=== PATIENT | female | born 1965 | race Caucasian/White ===

== ENCOUNTER 2016-08-22 10:11 | Observation (INO) | payer BC, OTHER ==
[~2016-08-22] VITALS: Ht 151.1 cm; Wt 123.0 kg
--- NOTE | 2016-08-22 10:45 | PHYS DOC ---
Past Medical History Past Medical History: Depression, Diabetes-Type II Past Surgical History: Cholecystectomy, Tubal ligation, Other Additional Past Surgical Histo: lap band Additional Information: Nonsmoker Alcohol Use: None Drug Use: None Adult General Chief Complaint Chief Complaint: CHEST PAIN HPI HPI Patient is a 50 year old female who presents with chest pain starting yesterday. She has sharp pain under the left breast and pressure over the left upper chest. She states that the pain is worse with deep breaths or with movement. She denies any shortness of breath. She did not have diaphoresis, nausea, vomiting, or palpitations with the pain. She denies cough, swelling or pain in the lower extremities. She's had normal bowel movements and denies abdominal pain. She took Gas-X last night without relief of her pain. She has a history of diabetes and hypertension. She denies history of elevated cholesterol or CAD. She denies a family history of CAD or clotting disorders. Her PCP is CHAN Cordova. She does not have a core feeder. Review of Systems Review of Systems Constitutional: Denies fever or chills. [] Eyes: Denies change in visual acuity, redness, or eye pain. [] HENT: Denies ear pain, nasal congestion or sore throat. [] Respiratory: Denies cough or shortness of breath. [] Cardiovascular: Denies palpitations or edema. The ports chest pain. GI: Denies nausea, vomiting, bloody stools or diarrhea. Reports left upper abdominal pain. : Denies dysuria, hematuria or urinary frequency. [] Musculoskeletal: Denies back pain or joint pain. [] Integument: Denies rash or skin lesions. [] Neurologic: Denies headache, focal weakness or sensory changes. [] Endocrine: Denies polyuria or polydipsia. [] Psych: Denies anxiety or depression. [] All systems reviewed and negative unless otherwise stated in the HPI. Current Medications Current Medications Current Medications Medications (Trade) Dose Ordered Sig/Florentin Start Time Stop Time Status Last Admin Dose Admin Morphine Sulfate 4 mg PRN Q15MIN PRN 08/22/16 11:00 08/23/16 10:59 08/22/16 12:06 4 MG Prochlorperazine Edisylate (Compazine) 10 mg 1X ONCE 08/22/16 11:00 08/22/16 11:01 DC 08/22/16 12:02 10 MG Allergies Allergies Allergies Coded Allergies Type Severity Reaction Last Updated Verified Sulfa (Sulfonamide Antibiotics) Allergy Intermediate Hives 08/04/14 Yes Physical Exam Physical Exam Constitutional: Well developed, well nourished, no acute distress, non-toxic appearance. [] HENT: Normocephalic, atraumatic, oropharynx moist. [] Eyes: PERRLA, EOMI, conjunctiva normal, no discharge. [] Neck: Normal range of motion, no tenderness, supple, no stridor. [] Cardiovascular: Heart rate regular rhythm, no murmur. [] Lungs & Thorax: Bilateral breath sounds clear to auscultation without wheezes, rales, or rhonchi. There is mild tenderness to palpation over the left upper anterior chest wall. Abdomen: Bowel sounds normal, soft, left upper quadrant tenderness, no masses, no pulsatile masses. [] Skin: Warm, dry, no erythema, no rash. [] Back: No midline tenderness, no CVA tenderness. [] Extremities: No tenderness, ROM intact, no edema. Distal pulses equal bilaterally. [] Neurologic: Alert and oriented X 3, normal motor function, normal sensory function, no focal deficits noted. [] Psychologic: Affect normal, judgement normal, mood normal. [] Current Patient Data Vital Signs Vital Signs Date Time Temp Pulse Resp B/P Pulse Ox O2 Delivery O2 Flow Rate FiO2 08/22/16 12:00 68 18 137/77 98 Room Air 08/22/16 10:24 97.2 97.2 Lab Values Laboratory Tests Test 08/22/16 11:22 White Blood Count 6.4x10^3/uL (4.0-11.0) Red Blood Count 5.11x10^6/uL (3.50-5.40) Hemoglobin 14.7g/dL (12.0-15.5) Hematocrit 44.7% (36.0-47.0) Mean Corpuscular Volume 87fL (79-100) Mean Corpuscular Hemoglobin 29pg (25-35) Mean Corpuscular Hemoglobin Concent 33g/dL (31-37) Red Cell Distribution Width 14.4% (11.5-14.5) Platelet Count 210x10^3/uL (140-400) Neutrophils (%) (Auto) 56% (31-73) Lymphocytes (%) (Auto) 32% (24-48) Monocytes (%) (Auto) 7% (0-9) Eosinophils (%) (Auto) 5% (0-3) H Basophils (%) (Auto) 1% (0-3) Neutrophils # (Auto) 3.5x10^3uL (1.8-7.7) Lymphocytes # (Auto) 2.0x10^3/uL (1.0-4.8) Monocytes # (Auto) 0.5x10^3/uL (0.0-1.1) Eosinophils # (Auto) 0.3x10^3/uL (0.0-0.7) Basophils # (Auto) 0.0x10^3/uL (0.0-0.2) Prothrombin Time 12.2SEC (11.7-14.0) Prothrombin Time INR 1.0 (0.8-1.1) Sodium Level 143mmol/L (136-145) Potassium Level 3.9mmol/L (3.5-5.1) Chloride Level 105mmol/L (98-107) Carbon Dioxide Level 31mmol/L (21-32) Anion Gap 7 (6-14) Blood Urea Nitrogen 18mg/dL (7-20) Creatinine 0.7mg/dL (0.6-1.0) Estimated GFR (Cockcroft-Gault) 89.3 Glucose Level 99mg/dL (70-99) Calcium Level 9.0mg/dL (8.5-10.1) Magnesium Level 2.2mg/dL (1.8-2.4) Total Bilirubin 0.5mg/dL (0.2-1.0) Direct Bilirubin 0.2mg/dL (0.0-0.2) Aspartate Amino Transferase (AST) 43U/L (15-37) H Alanine Aminotransferase (ALT) 88U/L (14-59) H Alkaline Phosphatase 88U/L (46-116) Creatine Kinase 172U/L (26-192) Creatine Kinase MB (Mass) 1.0ng/mL (0.0-3.6) Creatine Kinase MB Relative Index 0.6% (0-4) Troponin I Quantitative < 0.017ng/mL (0.000-0.055) PZ-Zez-[id number]-Type Natriuretic Peptide 97pg/mL (0-124) Total Protein 7.7g/dL (6.4-8.2) Albumin 4.2g/dL (3.4-5.0) Lipase 168U/L (73-393) Laboratory Tests 08/22/16 11:22 Laboratory Tests 08/22/16 11:22 EKG EKG EKG at 1021. Heart rate 80 bpm. Sinus rhythm without any acute ischemic changes or STEMI, as interpreted by Dr. Guevara. Radiology/Procedures Radiology/Procedures REASON: chest pain PROCEDURE: CHEST PA & LATERAL Chest, 2 views, 08/22/2016: History: Left-sided pain, hypertension The left ventricle is mildly prominent. The pulmonary vascularity is normal. No pulmonary infiltrates are seen. There is no evidence of pleural fluid. Moderate spurring is present in the spine. IMPRESSION: No acute cardiopulmonary abnormality is detected. Course & Med Decision Making Course & Med Decision Making Pertinent Labs and Imaging studies reviewed. (See chart for details) Patient is a 42-year-old female with history of diabetes and hypertension who presents with chest pain starting yesterday. Upon arrival to the emergency department, her vital signs are stable. On exam, she has left upper quadrant abdominal tenderness and mild anterior chest wall tenderness. EKG does not show any acute changes. Initial troponin is negative. Chest x-ray is unremarkable. There are no other significant laboratory abnormalities. I offered admission for her chest pain. The patient is in agreement with this plan. She is admitted under the hospitalist service by Dr. Liao for observation. The patient remained stable while in the emergency department. Dragon Disclaimer Dragon Disclaimer This electronic medical record was generated, in whole or in part, using a voice recognition dictation system. Departure Departure Impression: Primary Impression: Chest pain Disposition: ADMITTED INPATIENT (Dr. Liao) Admitting Physician: Other (Dr. Liao) Condition: STABLE Referrals: HERACLIO ISAAC (PCP) Problem Qualifiers Primary Impression: Chest pain Chest pain type: unspecified Qualified Code: R07.9 - Chest pain, unspecified HEATH PRAKASH Aug 22, 2016 10:44
[2016-08-22] MEDS ORDERED: MORPHINE SULFATE 4 MG/ML DISP.SYRIN. IV/SQ PRN (11:00)
[2016-08-22] MEDS ORDERED: PROCHLORPERAZINE 10 MG/2 ML VIAL. IV ONE (11:00)
--- NOTE | 2016-08-22 11:31 | EKG ---
[facility] [address] [place] [address] Test Date: 2016-08-22 Test Time: 10:21:18 Pat Name: GINA BACK Department: Room: Gender: F Drum Tester: : [id number] Requested By: HEATH PRAKASH Order Number: [id number] Reading MD: Measurements Intervals [place] Rate: 80 P: 32 OH: 156 QRS: 20 QRSD: 90 T: 18 QT: 368 QTc: 428 Interpretive Statements SINUS RHYTHM QRS(T) CONTOUR ABNORMALITY CONSIDER ANTEROSEPTAL MYOCARDIAL DAMAGE RI6.01 No previous ECG available for comparison
--- NOTE | 2016-08-22 11:31 | RAD ---
Chest, 2 views, 08/22/2016: History: Left-sided pain, hypertension The left ventricle is mildly prominent. The pulmonary vascularity is normal. No pulmonary infiltrates are seen. There is no evidence of pleural fluid. Moderate spurring is present in the spine. IMPRESSION: No acute cardiopulmonary abnormality is detected.
[2016-08-22 11:35] LABS: BASO % 1 % (0-3); EOS % 5 % (0-3); HEMATOCRIT 44.7 % (36.0-47.0); HEMOGLOBIN 14.7 g/dL (12.0-15.5); LYMPH % 32 % (24-48); MEAN CORPUSCULAR HEMOGLOBIN 29 pg (25-35); MEAN CORPUSCULAR HGB CONC 33 g/dL (31-37); MEAN CORPUSCULAR VOLUME 87 fL (79-100); MONO % 7 % (0-9); NEUT % 56 % (31-73); PLATELET COUNT 210 x10^3/uL (140-400); RED BLOOD COUNT 5.11 x10^6/uL (3.50-5.40); RED CELL DISTRIBUTION WIDTH 14.4 % (11.5-14.5); WHITE BLOOD COUNT 6.4 x10^3/uL (4.0-11.0)
[2016-08-22 11:41] LABS: CREATININE 0.7 mg/dL (0.6-1.0); GFR 89.3; POTASSIUM 3.9 mmol/L (3.5-5.1)
[2016-08-22 11:47] LABS: ALBUMIN 4.2 g/dL (3.4-5.0); DIRECT BILIRUBIN 0.2 mg/dL (0.0-0.2); MAGNESIUM 2.2 mg/dL (1.8-2.4); PROTHROMBIN TIME PATIENT 12.2 SEC (11.7-14.0); TOTAL BILIRUBIN 0.5 mg/dL (0.2-1.0); TOTAL PROTEIN 7.7 g/dL (6.4-8.2)
[2016-08-22 11:56] LABS: CKMB INDEX 0.6 % (0-4)
[2016-08-22] MEDS ORDERED: MORPHINE SULFATE 4 MG/ML DISP.SYRIN. IV PRN (14:15)
[2016-08-22] MEDS ORDERED: ASPIRIN 325 MG TABLET PO ONE (14:15)
--- NOTE | 2016-08-22 14:46 | PDOC2 ---
RONALD CARRERA [employer] 08/22/16 1446: CARDIAC CONSULT DATE OF CONSULT Date of Consult DATE: 08/22/16 TIME: 14:40 REASON FOR CONSULT Reason for Consult: Chest pain REFERRING PHYSICIAN Referring Physician: Irvin SOURCE Source: Chart review, Patient HISTORY OF PRESENT ILLNESS HISTORY OF PRESENT ILLNESS This is a pleasant 50 yo female admitted for complains of left abdominal pain and chest pain. Reports that starting yesterday afternoon she started having left abdominal pain. She had lap band 5 yrs ago in which she has lost 100 lbs to date. Along the way she has had 3 complications in relation to her lap band , one of which she had significant erosion of her esophagus. She has not had an EGD for a while. She actually had CT of the abdomen 09/2015 that displayed possible slippage of lap band. Her abdominal pain is mainly LUQ sharp and nagging and worse with palpation. This then was followed by left chest sharp pain which is also reproducible with palpation. She believes this is related to her abdominal pain. She is deconditioned but no associated SOA, nausea, vomiting, diaphoresis. Denies any daily NSAID use. She is DM with controlled BG <130s. Denies HTN, HLP. The only other medications she takes is lexapro. She is significant for GERD but does not utilize any PPI or H2 gab. Denies any CAD, VTE, falls or any recent injury. PAST MEDICAL HISTORY Cardiovascular: No pertinent hx Pulmonary: No pertinent hx CENTRAL NERVOUS SYSTEM: Other (No pertinent history) GI: GERD Heme/Onc: No pertinent hx Hepatobiliary: No pertinent hx, Other (NEAL) Psych: Depression Musculoskeletal: Osteoarthritis, Other (morbid obesity) Rheumatologic: No pertinent hx Infectious disease: No pertinent hx Endocrine: Diabetes (2) PAST SURGICAL HISTORY Past Surgical History: Cholecystectomy, Tubal Ligation, Other (lap band) FAMILY HISTORY Family History noncontributory to CV SOCIAL HISTORY Smoke: No ALCOHOL: none Drugs: None Lives: with Family CURRENT MEDICATIONS CURRENT MEDICATIONS Current Medications Medications (Trade) Dose Ordered Sig/Florentin Route PRN Reason Start Time Stop Time Status Last Admin Dose Admin Morphine Sulfate 4 mg PRN Q15MIN PRN IV/SQ PAIN GREATER THAN 3/10 08/22/16 11:00 08/23/16 10:59 08/22/16 12:06 Prochlorperazine Edisylate (Compazine) 10 mg 1X ONCE IV 08/22/16 11:00 08/22/16 11:01 DC 08/22/16 12:02 ALLERGIES ALLERGIES: Coded Allergies: Sulfa (Sulfonamide Antibiotics) (Verified Allergy, Intermediate, Hives, ) ROS Review of System 14 point ROS evaluated with pertinent positives noted per HPI PHYSICAL EXAM General: Alert, Oriented X3, Cooperative, No acute distress HEENT: Atraumatic, Mucous membr. moist/pink Lungs: Clear to auscultation Heart: Regular rate, Normal S1, Normal S2, No murmurs Abdomen: Soft, No tenderness, Other (obese) Extremities: No cyanosis, No edema Skin: No breakdown, No significant lesion Neuro: Normal speech, Sensation intact Psych/Mental Status: Mental status NL, Mood NL MUSCULOSKELETAL: Osteoarthritic changes both hands VITALS VITALS Vital Signs Date Time Temp Pulse Resp B/P Pulse Ox O2 Delivery O2 Flow Rate FiO2 08/22/16 14:00 72 18 144/73 97 Room Air 08/22/16 10:24 97.2 97.2 LABS Lab: Laboratory Tests Test 08/22/16 11:22 White Blood Count 6.4x10^3/uL (4.0-11.0) Red Blood Count 5.11x10^6/uL (3.50-5.40) Hemoglobin 14.7g/dL (12.0-15.5) Hematocrit 44.7% (36.0-47.0) Mean Corpuscular Volume 87fL (79-100) Mean Corpuscular Hemoglobin 29pg (25-35) Mean Corpuscular Hemoglobin Concent 33g/dL (31-37) Red Cell Distribution Width 14.4% (11.5-14.5) Platelet Count 210x10^3/uL (140-400) Neutrophils (%) (Auto) 56% (31-73) Lymphocytes (%) (Auto) 32% (24-48) Monocytes (%) (Auto) 7% (0-9) Eosinophils (%) (Auto) 5% (0-3) Basophils (%) (Auto) 1% (0-3) Neutrophils # (Auto) 3.5x10^3uL (1.8-7.7) Lymphocytes # (Auto) 2.0x10^3/uL (1.0-4.8) Monocytes # (Auto) 0.5x10^3/uL (0.0-1.1) Eosinophils # (Auto) 0.3x10^3/uL (0.0-0.7) Basophils # (Auto) 0.0x10^3/uL (0.0-0.2) Prothrombin Time 12.2SEC (11.7-14.0) Prothromb Time International Ratio 1.0 (0.8-1.1) Sodium Level 143mmol/L (136-145) Potassium Level 3.9mmol/L (3.5-5.1) Chloride Level 105mmol/L (98-107) Carbon Dioxide Level 31mmol/L (21-32) Anion Gap 7 (6-14) Blood Urea Nitrogen 18mg/dL (7-20) Creatinine 0.7mg/dL (0.6-1.0) Estimated GFR (Cockcroft-Gault) 89.3 Glucose Level 99mg/dL (70-99) Calcium Level 9.0mg/dL (8.5-10.1) Magnesium Level 2.2mg/dL (1.8-2.4) Total Bilirubin 0.5mg/dL (0.2-1.0) Direct Bilirubin 0.2mg/dL (0.0-0.2) Aspartate Amino Transf (AST/SGOT) 43U/L (15-37) Alanine Aminotransferase (ALT/SGPT) 88U/L (14-59) Alkaline Phosphatase 88U/L (46-116) Creatine Kinase 172U/L (26-192) Creatine Kinase MB (Mass) 1.0ng/mL (0.0-3.6) Creatine Kinase MB Relative Index 0.6% (0-4) Troponin I Quantitative < 0.017ng/mL (0.000-0.055) DK-Rmd-Y-Type Natriuretic Peptide 97pg/mL (0-124) Total Protein 7.7g/dL (6.4-8.2) Albumin 4.2g/dL (3.4-5.0) Lipase 168U/L (73-393) ASSESSMENT/PLAN ASSESSMENT/PLAN 1. Atypical CP: reproducible with palpation. initial troponin nml, EKG SR without acute changes. Doubt ACS likely GI in relation to lap band 2. Abdominal pain: mainly to mid and LUQ. Multiple lap band complications in the past. 3. DM2: controlled per pt 4. Morbid obesity Recommendations 1. Will obtain baseline TTE. Will trend troponin. If no significant changes then no further cardiac w/u needed. 2. Lipids, TSH 3. GI cocktail, start on PPI 4. Recommend CT abd, will defer to PCP Problems: MARYCRUZ ROSE MD 08/23/16 1303: CARDIAC CONSULT ALLERGIES ALLERGIES: Coded Allergies: Sulfa (Sulfonamide Antibiotics) (Verified Allergy, Intermediate, Hives, ) ASSESSMENT/PLAN ASSESSMENT/PLAN Patient seen and examined 08/22/16. Agree with RECONNAISSANCE CREWMEMBER's assessment and plan. Chest pain atypical and most probably GI etiology. Myocardial infarction ruled out. 2-D echo showed normal LV function without any wall motion abnormalities. No further cardiac workup is indicated. Thank you for your consultation. Problems: RONALD CARRERA APRN Aug 22, 2016 14:46 MARYCRUZ ROSE MD Aug 23, 2016 13:03
[2016-08-22] MEDS ORDERED: LORA10TA68 PO (16:26)
[2016-08-22] MEDS ORDERED: ESCI10TA PO (16:26)
[2016-08-22] MEDS ORDERED: METF500T4 PO (16:26)
--- NOTE | 2016-08-22 16:28 | CARD ---
APPROVED REPORT EXAM: Two-dimensional and M-mode echocardiogram with Doppler and color Doppler. Other Information Quality : Average Rhythm : NSR INDICATION Chest Pain 2D DIMENSIONS RVDd2.5 (2.9-3.5cm)Left Atrium(2D)3.3 (1.6-4.0cm) IVSd1.1 (0.7-1.1cm)Aortic Root(2D)3.0 (2.0-3.7cm) LVDd4.7 (3.9-5.9cm)LVOT Diameter2.0 (1.8-2.4cm) PWd1.1 (0.7-1.1cm)LVDs3.0 (2.5-4.0cm) FS (%) 35.4 %SV65.1 ml Aortic Valve AoV Peak Jack.122.3cm/sAoV VTI27.4cm AO Peak GR.6.0mmHgLVOT VTI 24.03cm AO Mean GR.4mmHg Mitral Valve MV E Ctohjudc44.5cm/sMV DECEL [id number] MV A Rjxgrlii95.2cm/sE/A Ratio1.1 MV A [id number] TDI Lateral E' P. V12.83cm/sMedial E' P. V10.86cm/s E/Lateral E'5.1E/Medial E'6.0 Tricuspid Valve TR P. [id number]/sRAP [id number] TR Peak Gr.[id number] LEFT VENTRICLE The left ventricle is normal size. There is normal left ventricular wall thickness. Left ventricle sy stolic function is normal. The Ejection Fraction is 55-60%. There is normal LV segmental wall motion. The left ventricular diastolic function and filling is normal for age. RIGHT VENTRICLE The right ventricle is normal size. The right ventricular systolic function is normal. ATRIA The left atrium size is normal. The right atrium size is normal. The interatrial septum is intact wit h no evidence for an atrial septal defect or patent foramen ovale as noted on 2-D or Doppler imaging. AORTIC VALVE The aortic valve is normal in structure and function. The aortic valve is trileaflet. Doppler and Col or Flow revealed no significant aortic regurgitation. There is no significant aortic valvular stenosi s. MITRAL VALVE The mitral valve is normal in structure and function. There is no mitral valve stenosis. Doppler and Color Flow revealed trace mitral regurgitation. TRICUSPID VALVE The tricuspid valve is normal in structure and function. Doppler and Color Flow revealed trace to mil d tricuspid regurgitation. The PA pressure was estimated at 29 mmHg. There is no tricuspid valve sten osis. PULMONIC VALVE The pulmonic valve is not well visualized. Doppler and Color Flow revealed no pulmonic valvular regur gitation. There is no pulmonic valvular stenosis. GREAT VESSELS The aortic root is normal in size. Pulmonary veins not recorded. The IVC was not well visualized. PERICARDIAL EFFUSION There is no evidence of significant pericardial effusion. Critical Notification Critical Value: No <Conclusion> The left ventricle is normal size. Left ventricle systolic function is normal. The Ejection Fraction is 55-60%. There is no significant aortic valvular stenosis. Doppler and Color Flow revealed no significant aortic regurgitation. Doppler and Color Flow revealed trace mitral regurgitation. Doppler and Color Flow revealed trace to mild tricuspid regurgitation. The PA pressure was estimated at 29 mmHg. There is no evidence of significant pericardial effusion.
[2016-08-22] MEDS ORDERED: LIDO:MAALOX:DONNATAL 1:1:1 15 ML SINGLE DOSE SWSW ONE (16:45)
[2016-08-22] MEDS: PANTOPRAZOLE 40 MG TABLET.DR. PO SCH (17:51)
--- NOTE | 2016-08-22 18:52 | ACF ---
Admission Forms Criteria CHEST PAIN Clinical Indications for Admission to Inpatient Care (Place 'X' for any and all applicable criteria): Admission is indicated for chest pain and ANY ONE of the following(1)(2)(3)(4)(5 ): [ ]I. Angina with acute coronary syndrome (Also use Myocardial Infarction or Angina guideline) [ ]II. Hemodynamic instability [X]III. Angina needing acute intervention as indicated by ALL of the following( 11)(12): [X]a) Unstable angina is present as indicated by angina that is ANY ONE of the following: [X]i) New onset [ ]ii) Nocturnal [ ]iii) Prolonged at rest [ ]iv) Progressive [ ]b) Angina warrants acute intervention as indicated by ANY ONE of the following: [ ]i) Recurrent angina (e.g, not responding as previously to treatment) [ ]ii) Angina at rest or with low-level activities despite initial medical therapy [ ]iii) New or presumably new ST-segment depression on ECG [ ]iv) Signs or symptoms of heart failure (eg, dyspnea, pulmonary edema) [ ]v) New or worsening mitral regurgitation [ ]vi) Hemodynamic instability [ ]vii) Dangerous arrhythmia (eg, sustained ventricular tachycardia) [ ]viii) History of percutaneous coronary intervention within 6 months [ ]ix) History of coronary artery bypass graft surgery [ ]x) HEIDI risk score of 2 or greater[A] [X]xi) History of Diabetes(14) [ ]xii) High-risk cardiac ischemia findings on noninvasive testing (e.g, echocardiogram, treadmill testing, nuclear scan) [ ]xiii) Chronic renal insufficiency (ie, estimated GFR less than 60 mL/min/1.732m) [ ]xiv) Left ventricular ejection fraction less than 40% [ ]IV. Evidence of CO (eg, cardiac biomarkers positive, ST-segment elevation on ECG) also use Myocardial Infarction Criteria Form. [ ]V. Pulmonary edema [ ]. Respiratory distress [ ]VII. Chest pain indicative of serious diagnosis other than coronary artery disease (eg, aortic dissection) [ ]VIII. Contraindications and/or Inappropriate clinical situations for Observational Care in patients with Chest Pain, when ANY ONE of the following is required: [ ]a) Patient with risk factor for pulmonary embolism, acute coronary syndrome and myocardial infarction (18) [ ]b) Patient with Pulmonary embolism require an average LOS of 4.3 days, therefore emergency department observation management is inappropriate 18,23 [ ]c) Painful condition/s in the elderly, have the highest rate of recidivism after emergency department observation management (10.8%) 20,21,22 [ ]d) Elevated cardiac biomarker requires intensive and exhaustive care (19) [ ]IX. General contraindications and/or Inappropriate clinical situations for Observational Care in patients with Chest Pain, when ANY ONE of the following is required: [ ]a) Prediction of prolongation of LOS based on ANY ONE of the following may be considered as a contraindication for observational care 2, 3, 4, 5, 6, 7, 8, 9, 10, 11 [ ]i) Age > 65 yrs. [ ]ii) Patient arriving by ambulance [ ]iii) Patient with high acuity [ ]iv) Patient requiring vital sign monitoring [ ]v) Patient on IV medication [ ]b) Systolic blood pressures 180mmHg 3,12 [ ]c) Patient with altered mental status including delirium and other alteration of consciousness, (3) [ ]d) Patient whose discharge disposition will be to a group home home or rehabilitation home should not be managed in Emergency Department Observation Unit. CMS rule requires 3 days hospital stay before such placement. 3,13 [ ]e) Patient with failure to thrive due to broad array of etiologies 3,16,17 [ ]f) Inability to ambulate 3,14 Extended stay beyond goal length of stay may be needed for (1)(28): [ ]a) Specific condition diagnosed after evaluation (eg, pulmonary embolism, aortic dissection) [ ]b) Unstable angina [ ]c) Continued suspicion of acute coronary syndrome with inability to complete needed cardiac evaluation (eg, patient clinically unable to undergo stress testing) [ ]d) Myocardial infarction (Contents from ANGINA and CHEST PAIN clinical indications for admission to inpatient care have been integrated in this form) The original [facility] content created by [employer] has been revised. The portions of the content which have been revised are identified through the use of italic text or in bold, and [facility] has neither reviewed nor approved the modified material. All other unmodified content is copyright [employer]. Please see references footnoted in the original [facility] edition 2016 Admission Criteria Met?: Yes SONJA GUTIERREZ Aug 22, 2016 18:52
[2016-08-22 19:00] VITALS: BP 114/69
[2016-08-22 22:57] VITALS: BP 113/75
[2016-08-23 03:00] VITALS: BP 107/57
[2016-08-23 04:44] LABS: CHOLESTEROL/HDL RATIO 4.9
[2016-08-23 07:00] VITALS: BP 152/78
[2016-08-23] MEDS: PANTOPRAZOLE 40 MG TABLET.DR. PO SCH (08:27)
[2016-08-23 11:00] VITALS: BP 142/95
--- NOTE | 2016-08-23 11:08 | PDOC ---
PROGRESS NOTES Chief Complaint Chief Complaint CC: abdominal pain A/P Abdominal pain / Chest pain, MSK Related vs GERD Plan CT abdomen ECHO no findings labs no acute findings anticipated DC today after CT abdomen. Vitals Vitals Vital Signs Date Time Temp Pulse Resp B/P Pulse Ox O2 Delivery O2 Flow Rate FiO2 08/23/16 08:00 Room Air 08/23/16 07:00 97.9 83 20 152/78 93 97.9 Physical Exam General: Alert, Oriented X3, Cooperative, No acute distress Heart: Regular rate, Normal S1, Normal S2, No murmurs Lungs: Clear Abdomen: Normal bowel sounds, Soft, No tenderness, Other (obese) Extremities: No cyanosis, No edema Skin: No breakdown, No significant lesion Labs LABS Laboratory Tests Test 08/22/16 11:22 08/22/16 20:20 08/22/16 20:46 08/23/16 02:50 White Blood Count 6.4x10^3/uL (4.0-11.0) Red Blood Count 5.11x10^6/uL (3.50-5.40) Hemoglobin 14.7g/dL (12.0-15.5) Hematocrit 44.7% (36.0-47.0) Mean Corpuscular Volume 87fL (79-100) Mean Corpuscular Hemoglobin 29pg (25-35) Mean Corpuscular Hemoglobin Concent 33g/dL (31-37) Red Cell Distribution Width 14.4% (11.5-14.5) Platelet Count 210x10^3/uL (140-400) Neutrophils (%) (Auto) 56% (31-73) Lymphocytes (%) (Auto) 32% (24-48) Monocytes (%) (Auto) 7% (0-9) Eosinophils (%) (Auto) 5% (0-3) Basophils (%) (Auto) 1% (0-3) Neutrophils # (Auto) 3.5x10^3uL (1.8-7.7) Lymphocytes # (Auto) 2.0x10^3/uL (1.0-4.8) Monocytes # (Auto) 0.5x10^3/uL (0.0-1.1) Eosinophils # (Auto) 0.3x10^3/uL (0.0-0.7) Basophils # (Auto) 0.0x10^3/uL (0.0-0.2) Prothrombin Time 12.2SEC (11.7-14.0) Prothromb Time International Ratio 1.0 (0.8-1.1) Sodium Level 143mmol/L (136-145) Potassium Level 3.9mmol/L (3.5-5.1) Chloride Level 105mmol/L (98-107) Carbon Dioxide Level 31mmol/L (21-32) Anion Gap 7 (6-14) Blood Urea Nitrogen 18mg/dL (7-20) Creatinine 0.7mg/dL (0.6-1.0) Estimated GFR (Cockcroft-Gault) 89.3 Glucose Level 99mg/dL (70-99) Calcium Level 9.0mg/dL (8.5-10.1) Magnesium Level 2.2mg/dL (1.8-2.4) Total Bilirubin 0.5mg/dL (0.2-1.0) Direct Bilirubin 0.2mg/dL (0.0-0.2) Aspartate Amino Transf (AST/SGOT) 43U/L (15-37) Alanine Aminotransferase (ALT/SGPT) 88U/L (14-59) Alkaline Phosphatase 88U/L (46-116) Creatine Kinase 172U/L (26-192) Creatine Kinase MB (Mass) 1.0ng/mL (0.0-3.6) Creatine Kinase MB Relative Index 0.6% (0-4) Troponin I Quantitative < 0.017ng/mL (0.000-0.055) < 0.017ng/mL (0.000-0.055) < 0.017ng/mL (0.000-0.055) MT-Pud-N-Type Natriuretic Peptide 97pg/mL (0-124) Total Protein 7.7g/dL (6.4-8.2) Albumin 4.2g/dL (3.4-5.0) Lipase 168U/L (73-393) Thyroid Stimulating Hormone (TSH) 1.125uIU/mL (0.358-3.74) Glucose (Fingerstick) 108mg/dL (70-99) Triglycerides Level 132mg/dL (0-150) Cholesterol Level 172mg/dL (0-200) LDL Cholesterol, Calculated 111mg/dL (0-100) VLDL Cholesterol, Calculated 26mg/dL (0-40) HDL Cholesterol 35mg/dL (40-60) Cholesterol/HDL Ratio 4.9 Test 08/23/16 08:09 Glucose (Fingerstick) 104mg/dL (70-99) Assessment and Plan Assessmemt and Plan Problems Medical Problems: (1) Chest pain Status: Acute Problems: Comment Review of Relevant I have reviewed the following items steve (where applicable) has been applied. Labs Laboratory Tests Test 08/22/16 11:22 08/22/16 20:20 08/22/16 20:46 08/23/16 02:50 White Blood Count 6.4x10^3/uL (4.0-11.0) Red Blood Count 5.11x10^6/uL (3.50-5.40) Hemoglobin 14.7g/dL (12.0-15.5) Hematocrit 44.7% (36.0-47.0) Mean Corpuscular Volume 87fL (79-100) Mean Corpuscular Hemoglobin 29pg (25-35) Mean Corpuscular Hemoglobin Concent 33g/dL (31-37) Red Cell Distribution Width 14.4% (11.5-14.5) Platelet Count 210x10^3/uL (140-400) Neutrophils (%) (Auto) 56% (31-73) Lymphocytes (%) (Auto) 32% (24-48) Monocytes (%) (Auto) 7% (0-9) Eosinophils (%) (Auto) 5% (0-3) Basophils (%) (Auto) 1% (0-3) Neutrophils # (Auto) 3.5x10^3uL (1.8-7.7) Lymphocytes # (Auto) 2.0x10^3/uL (1.0-4.8) Monocytes # (Auto) 0.5x10^3/uL (0.0-1.1) Eosinophils # (Auto) 0.3x10^3/uL (0.0-0.7) Basophils # (Auto) 0.0x10^3/uL (0.0-0.2) Prothrombin Time 12.2SEC (11.7-14.0) Prothromb Time International Ratio 1.0 (0.8-1.1) Sodium Level 143mmol/L (136-145) Potassium Level 3.9mmol/L (3.5-5.1) Chloride Level 105mmol/L (98-107) Carbon Dioxide Level 31mmol/L (21-32) Anion Gap 7 (6-14) Blood Urea Nitrogen 18mg/dL (7-20) Creatinine 0.7mg/dL (0.6-1.0) Estimated GFR (Cockcroft-Gault) 89.3 Glucose Level 99mg/dL (70-99) Calcium Level 9.0mg/dL (8.5-10.1) Magnesium Level 2.2mg/dL (1.8-2.4) Total Bilirubin 0.5mg/dL (0.2-1.0) Direct Bilirubin 0.2mg/dL (0.0-0.2) Aspartate Amino Transf (AST/SGOT) 43U/L (15-37) Alanine Aminotransferase (ALT/SGPT) 88U/L (14-59) Alkaline Phosphatase 88U/L (46-116) Creatine Kinase 172U/L (26-192) Creatine Kinase MB (Mass) 1.0ng/mL (0.0-3.6) Creatine Kinase MB Relative Index 0.6% (0-4) Troponin I Quantitative < 0.017ng/mL (0.000-0.055) < 0.017ng/mL (0.000-0.055) < 0.017ng/mL (0.000-0.055) AC-Xgw-P-Type Natriuretic Peptide 97pg/mL (0-124) Total Protein 7.7g/dL (6.4-8.2) Albumin 4.2g/dL (3.4-5.0) Lipase 168U/L (73-393) Thyroid Stimulating Hormone (TSH) 1.125uIU/mL (0.358-3.74) Glucose (Fingerstick) 108mg/dL (70-99) Triglycerides Level 132mg/dL (0-150) Cholesterol Level 172mg/dL (0-200) LDL Cholesterol, Calculated 111mg/dL (0-100) VLDL Cholesterol, Calculated 26mg/dL (0-40) HDL Cholesterol 35mg/dL (40-60) Cholesterol/HDL Ratio 4.9 Test 08/23/16 08:09 Glucose (Fingerstick) 104mg/dL (70-99) Laboratory Tests Test 08/22/16 11:22 08/22/16 20:20 08/22/16 20:46 08/23/16 02:50 White Blood Count 6.4x10^3/uL (4.0-11.0) Red Blood Count 5.11x10^6/uL (3.50-5.40) Hemoglobin 14.7g/dL (12.0-15.5) Hematocrit 44.7% (36.0-47.0) Mean Corpuscular Volume 87fL (79-100) Mean Corpuscular Hemoglobin 29pg (25-35) Mean Corpuscular Hemoglobin Concent 33g/dL (31-37) Red Cell Distribution Width 14.4% (11.5-14.5) Platelet Count 210x10^3/uL (140-400) Neutrophils (%) (Auto) 56% (31-73) Lymphocytes (%) (Auto) 32% (24-48) Monocytes (%) (Auto) 7% (0-9) Eosinophils (%) (Auto) 5% (0-3) Basophils (%) (Auto) 1% (0-3) Neutrophils # (Auto) 3.5x10^3uL (1.8-7.7) Lymphocytes # (Auto) 2.0x10^3/uL (1.0-4.8) Monocytes # (Auto) 0.5x10^3/uL (0.0-1.1) Eosinophils # (Auto) 0.3x10^3/uL (0.0-0.7) Basophils # (Auto) 0.0x10^3/uL (0.0-0.2) Prothrombin Time 12.2SEC (11.7-14.0) Prothromb Time International Ratio 1.0 (0.8-1.1) Sodium Level 143mmol/L (136-145) Potassium Level 3.9mmol/L (3.5-5.1) Chloride Level 105mmol/L (98-107) Carbon Dioxide Level 31mmol/L (21-32) Anion Gap 7 (6-14) Blood Urea Nitrogen 18mg/dL (7-20) Creatinine 0.7mg/dL (0.6-1.0) Estimated GFR (Cockcroft-Gault) 89.3 Glucose Level 99mg/dL (70-99) Calcium Level 9.0mg/dL (8.5-10.1) Magnesium Level 2.2mg/dL (1.8-2.4) Total Bilirubin 0.5mg/dL (0.2-1.0) Direct Bilirubin 0.2mg/dL (0.0-0.2) Aspartate Amino Transf (AST/SGOT) 43U/L (15-37) Alanine Aminotransferase (ALT/SGPT) 88U/L (14-59) Alkaline Phosphatase 88U/L (46-116) Creatine Kinase 172U/L (26-192) Creatine Kinase MB (Mass) 1.0ng/mL (0.0-3.6) Creatine Kinase MB Relative Index 0.6% (0-4) Troponin I Quantitative < 0.017ng/mL (0.000-0.055) < 0.017ng/mL (0.000-0.055) < 0.017ng/mL (0.000-0.055) WY-Nqx-K-Type Natriuretic Peptide 97pg/mL (0-124) Total Protein 7.7g/dL (6.4-8.2) Albumin 4.2g/dL (3.4-5.0) Lipase 168U/L (73-393) Thyroid Stimulating Hormone (TSH) 1.125uIU/mL (0.358-3.74) Glucose (Fingerstick) 108mg/dL (70-99) Triglycerides Level 132mg/dL (0-150) Cholesterol Level 172mg/dL (0-200) LDL Cholesterol, Calculated 111mg/dL (0-100) VLDL Cholesterol, Calculated 26mg/dL (0-40) HDL Cholesterol 35mg/dL (40-60) Cholesterol/HDL Ratio 4.9 Test 08/23/16 08:09 Glucose (Fingerstick) 104mg/dL (70-99) Medications Current Medications Morphine Sulfate 4 mg PRN Q15MIN PRN IV/SQ PAIN GREATER THAN 3/10 Last administered on 08/22/16t 12:06; Start 08/22/16 at 11:00; Stop 08/23/16 at 10:59 ; Status DC Prochlorperazine Edisylate (Compazine) 10 mg 1X ONCE IV Last administered on 12:02; Start 08/22/16 at 11:00; Stop 08/22/16 at 11:01; Status DC Morphine Sulfate 4 mg PRN Q2HR PRN IV PAIN; Start 08/22/16 at 14:15; Stop 08/23 at 14:14 Aspirin (Macarena Aspirin) 325 mg 1X ONCE PO Last administered on 08/22/16 17:51 ; Start 08/22/16 at 14:15; Stop 08/22/16 at 14:17; Status DC Multi-Ingredient Mouthwash/Gargle (Gi Cocktail Single Dose) 15 ml 1X ONCE SWSW Last administered on 08/22/16 17:51; Start 08/22/16 at 16:45; Stop 08/22/16 at 16:46; Status DC Pantoprazole Sodium (Protonix) 40 mg DAILYAC PO Last administered on 08/23/16 08:27; Start 08/22/16 at 17:00 Active Scripts Active Reported Claritin (Loratadine) 10 Mg Tablet 1 Tab PO DAILY Escitalopram Oxalate 10 Mg Tablet 1 Tab PO DAILY Metformin Hcl 500 Mg Tablet 500 Tab PO BID Vitals/I & O Vital Sign - Last 24 Hours 08/22/16 08/22/16 08/22/16 08/22/16 12:00 13:00 14:00 14:30 Pulse 68 68 72 Resp 18 19 18 B/P 137/77 135/69 144/73 Pulse Ox 98 95 97 O2 Delivery Room Air Room Air Room Air Room Air 08/22/16 08/22/16 08/22/16 08/23/16 19:00 20:00 22:57 03:00 Temp 97.9 97.9 96.6 97.9 97.9 96.6 Pulse 71 72 66 Resp 20 20 20 B/P 114/69 113/75 107/57 Pulse Ox 91 92 96 O2 Delivery Room Air Room Air Room Air Room Air 08/23/16 08/23/16 07:00 08:00 Temp 97.9 97.9 Pulse 83 Resp 20 B/P 152/78 Pulse Ox 93 O2 Delivery Room Air Room Air Intake and Output 08/22/16 08/22/16 08/23/16 14:59 22:59 06:59 Intake Total 900 ml 0 ml Balance 900 ml 0 ml VASIREDDI,JASON R MD Aug 23, 2016 11:08
[2016-08-23] MEDS ORDERED: IOHEXOL 240 MG/ML 50ML VIAL. IV ONE (11:30)
[2016-08-23] MEDS ORDERED: IOHEXOL 300 MG/ML 75 ML VIAL IV ONE (11:30)
[2016-08-23] MEDS ORDERED: CONTRAST GIVEN MC PRN (11:30)
[2016-08-23] MEDS ORDERED: PANT40TA3 PO (14:57)
[2016-08-23 15:00] VITALS: BP 123/76
--- NOTE | 2016-08-23 15:36 | RAD ---
CT of the abdomen with contrast, 08/23/2016: History: Right upper quadrant pain Multidetector CT imaging was performed following oral and IV administration of contrast. Comparison is made to a study from 09/17/2015. The liver is of lower than normal density compatible with fatty change. There is no evidence of a hepatic mass or bile duct dilatation. The gallbladder is surgically absent. No pancreatic abnormality is detected. There are calcified splenic granulomata. The spleen is of normal size. There is mild bilateral renal cortical scarring. The kidneys show no evidence of obstruction. There is minimal aortic calcific plaquing. No abdominal adenopathy is seen. A lap band type device is in place. Its position is closer to the GE junction than on the previous study. The bowel loops are of normal caliber. The oral contrast material has reached the colon. No free fluid or free air is evident in the abdomen. There is a small fascial defect in the anterior abdominal wall just to the right of midline. This small hernia contains only fat. There is streaky increased density within the herniated fat compatible with inflammation. The small fascial defect was also present on the previous study, however, the inflamed fat is new. There are mild scattered degenerative changes in the spine. IMPRESSION: 1. Small ventral hernia containing inflamed fat. No bowel herniation is present. 2. A lap band device remains in place. 3. Hepatic steatosis. PQRS Compliance Statement: One or more of the following individualized dose reduction techniques were utilized for this examination: 1. Automated exposure control 2. Adjustment of the mA and/or kV according to patient size 3. Use of iterative reconstruction technique
--- NOTE | 2016-08-24 03:11 | HP ---
ADMIT DATE: 08/23/2016 HISTORY AND PHYSICAL AND DISCHARGE SUMMARY CHIEF COMPLAINT: Chest pain. HISTORY OF PRESENT ILLNESS: A 50-year-old female patient with a prior history of gastritis and gastric bypass surgery and obesity and diabetes, presented to the ER with complaints of abdominal pain and chest pain located on the left side, 1-day duration. The patient had a history of GERD and also she had some discomfort on the left side starting from the clavicle region to the mid abdomen; however, symptoms resolved with conservative treatment in the ER, but she had some reproducible chest pain on the left side and also mild tenderness in the abdomen, left upper quadrant. She denies any trauma or nausea or vomiting or sweating or hematemesis or hematochezia. The patient has been compliant with her medications for diabetes. She was taking pills for GERD, but now she does not take any medications. PAST MEDICAL HISTORY: GERD, diabetes, depression, morbid obesity. PAST SURGICAL HISTORY: Cholecystectomy. FAMILY HISTORY: No sudden cardiac . SOCIAL HISTORY: No smoking, no alcohol, no drug abuse. ALLERGIES: SULFA. REVIEW OF SYSTEMS: CONSTITUTIONAL: No fever or chills. EYES: No recent vision changes. SKIN: No rash or itching. CARDIOVASCULAR: No chest pain, syncope, palpitations or edema. RESPIRATORY: No shortness of breath, cough. GASTROINTESTINAL: Abdominal pain. NEUROLOGICAL: No headache, paralysis. ENDOCRINOLOGIC: No cold or heat intolerance. GENITOURINARY: No burning with urination, no urgency. MUSCULOSKELETAL: No back pain or joint pain. LYMPHATICS: No enlarged nodes. PSYCHIATRIC: No anxiety or depression. PHYSICAL EXAM: GENERAL: No apparent distress. HEENT: Head normocephalic, atraumatic. NECK: Supple. LUNGS: Clear to auscultation. HEART: Regular rate and rhythm; S1, S2 present; pulses intact. ABDOMEN: Soft and positive bowel sounds. EXTREMITIES: No cyanosis or edema. NEUROLOGIC: Normal speech and normal tone; alert and oriented. PSYCHIATRIC: Normal affect, normal mood. SKIN: No ulceration. LABORATORY FINDINGS: CBC within normal limits. Chemistry within normal limits including 2 sets of troponins and lipid panel. IMAGING STUDIES: 1. Chest x-ray, no acute process seen. 2. Echocardiogram: Normal LV ejection fraction. 3. CT of the abdomen showed a small ventral hernia containing ____. No herniation is presented. Lap band ____. 4. EKG, not able to obtain the report, as per ER report, no acute ST-T wave changes. ASSESSMENT AND PLAN: 1. Acute abdominal pain/chest pain, likely due to gastritis or related to ventral hernia or gastroesophageal reflux disease related or musculoskeletal in nature. 2. Diabetes mellitus. 3. Morbid obesity. BRIEF HOSPITAL COURSE: A 50-year-old female patient admitted to the hospital for chest pain and she was evaluated by Cardiology. Echocardiogram showed normal LV ejection fraction. ____ ruled out ACS. The patient did not have any risk factors for PE or aortic dissection. She remained chest pain free during her hospitalization and today, she deemed clinically stable enough to go home and follow up with primary care doctor in a couple of days. DISCHARGE DISPOSITION: Home. DISCHARGE CONDITION: Stable. DIET: Diabetic diet. DISCHARGE MEDICATIONS: Reviewed and reconciled. New medication, Protonix 40 mg daily. Total time spent for H and P and discharge summary is 45 minutes. JASON MONTIEL MD DR: DIMPLE/sara JOB#: [id number] / [id number]
== END 2016-08-23 16:32 | disposition home or self-care (01) ==
LOC: ER 10:11 → 5 NORTH 12:30
PROVIDERS: ADMIT Internal Medicine Hematology & Oncology; ATTEND Internal Medicine Hematology & Oncology
DX: R07.89 Other chest pain (principal); R10.9 Unspecified abdominal pain; I10 Essential (primary) hypertension; E11.9 Type 2 diabetes mellitus without complications; E66.01 Morbid (severe) obesity due to excess calories; K21.9 Gastro-esophageal reflux disease without esophagitis; F32.9 Major depressive disorder, single episode, unspecified; M19.90 Unspecified osteoarthritis, unspecified site; Z98.84 Bariatric surgery status
CPT/HCPCS: 36415; 71020; 74160; 80048; 80061; 80076; 82553; 82947; 83690; 83735; 83880; 84443; 84484; 85027; 85610; 93005; 93306; 96374; 96375; 99285; G0378; J0780; J2270; Q9966; Q9967; G0379

== ENCOUNTER → 2017-06-20 | Outpatient (CLI) | payer SELFPAY ==
[2017-06-20 17:25] LABS: ADD MAN DIFF? NO
[2017-06-20 17:38] LABS: BASO # 0.1 x10^3/uL (0.0-0.2); BASO % 1 % (0-3); EOS # 0.2 x10^3/uL (0.0-0.7); EOS % 2 % (0-3); HEMATOCRIT 47.8 % (36.0-47.0); LYMPH # 2.9 x10^3/uL (1.0-4.8); LYMPH % 30 % (24-48); MEAN CORPUSCULAR HEMOGLOBIN 30 pg (25-35); MEAN CORPUSCULAR HGB CONC 34 g/dL (31-37); MEAN CORPUSCULAR VOLUME 90 fL (79-100); MONO # 0.7 x10^3/uL (0.0-1.1); MONO % 7 % (0-9); NEUT # 5.9 x10^3uL (1.8-7.7); NEUT % 61 % (31-73); PLATELET COUNT 252 x10^3/uL (140-400); RED CELL DISTRIBUTION WIDTH 13.7 % (11.5-14.5); WHITE BLOOD COUNT 9.7 x10^3/uL (4.0-11.0)
[2017-06-20 18:00] LABS: ALBUMIN 4.3 g/dL (3.4-5.0); ALK PHOS 94 U/L (46-116); ALT (SGPT) 116 U/L (14-59); ANION GAP 14 (6-14); AST (SGOT) 74 U/L (15-37); BLOOD UREA NITROGEN 22 mg/dL (7-20); BUN/CREATININE RATIO 24 (6-20); CALCIUM 10.4 mg/dL (8.5-10.1); CARBON DIOXIDE 29 mmol/L (21-32); CHLORIDE 99 mmol/L (98-107); CHOLESTEROL 191 mg/dL (0-200); CREATININE 0.9 mg/dL (0.6-1.0); GFR 66.5; GLUCOSE 133 mg/dL (70-99); HDLC 46 mg/dL (40-60); LDLC 115 mg/dL (0-100); NON-HDL CHOLESTEROL 145 mg/dL (0-129); POTASSIUM 3.6 mmol/L (3.5-5.1); SODIUM 142 mmol/L (136-145); TOTAL BILIRUBIN 0.5 mg/dL (0.2-1.0); TOTAL PROTEIN 8.4 g/dL (6.4-8.2); TRIGLYCERIDES 148 mg/dL (0-150); VLDLC 30 mg/dL (0-40)
[2017-06-20 18:02] LABS: CHOLESTEROL/HDL RATIO 4.2
[2017-06-20 18:08] LABS: FREE T4 0.98 ng/dL (0.76-1.46)
[2017-06-21 06:22] LABS: HEMOGLOBIN A1C 6.1 % (4.8-5.6)
== END | disposition home or self-care (01) ==
LOC: LAB 17:10
DX: E11.69 Type 2 diabetes mellitus with other specified complication (principal); I10 Essential (primary) hypertension
CPT/HCPCS: 36415; 80053; 80061; 83036; 84439; 84443; 85025

== ENCOUNTER → 2017-07-22 | Outpatient (CLI) | payer OTHER ==
[2017-07-22 22:09] LABS: MICROALBUMIN, RANDOM URINE <12.0 ug/mL (Not Estab.)
== END | disposition home or self-care (01) ==
LOC: RAD 10:08
DX: E11.69 Type 2 diabetes mellitus with other specified complication (principal); R09.89 Other specified symptoms and signs involving the circulatory and respiratory systems; Z90.49 Acquired absence of other specified parts of digestive tract; W19.XXXA Unspecified fall, initial encounter
CPT/HCPCS: 36415; 71111; 71120; 82043

== ENCOUNTER → 2017-07-23 | Outpatient (CLI) | payer OTHER ==
[2017-07-24 14:29] LABS: HCV ANTIBODY <0.1 s/co ratio (0.0-0.9); HEP A IGM ABDY Negative (Negative); HEP B SURFACE AG Negative (Negative)
== END | disposition home or self-care (01) ==
LOC: LAB 15:59
DX: R94.5 Abnormal results of liver function studies (principal); R79.89 Other specified abnormal findings of blood chemistry
CPT/HCPCS: 36415; 80074

== ENCOUNTER → 2017-11-03 | Outpatient (CLI) | payer OTHER ==
[2017-11-04 02:15] LABS: HEMOGLOBIN A1C 6.5 % (4.8-5.6)
== END | disposition home or self-care (01) ==
LOC: LAB 11:46
DX: E11.69 Type 2 diabetes mellitus with other specified complication (principal); I10 Essential (primary) hypertension
CPT/HCPCS: 36415; 83036

== ENCOUNTER 2017-11-30 11:07 | Emergency (ER) | payer OTHER ==
[2017-11-30] MEDS: ONDANSETRON ODT 4 MG TAB.RAPDIS. PO (11:52)
== END 2017-11-30 13:44 | disposition home or self-care (01) ==
LOC: ER 11:07
DX: R42 Dizziness and giddiness (principal); E11.9 Type 2 diabetes mellitus without complications; R11.0 Nausea; Z88.2 Allergy status to sulfonamides
CPT/HCPCS: 99283; Q0162

== ENCOUNTER 2017-12-25 21:40 | Emergency (ER) | payer OTHER ==
[~2017-12-25] VITALS: Ht 152.4 cm; Wt 120.2 kg
[~2017-12-25 21:40] MED LIST: ALPR0.5T6 PO; ESCITALOPRAM OX10 MG PO; HYDR12.58 PO; LEVO500T59 PO; LORA10TA68 PO; METF500T5 PO; ONDA8TAB9 PO; PANT40TA3 PO
[2017-12-25 22:21] VITALS: BP 126/69
[2017-12-25] MEDS ORDERED: HYDR-971 PO (23:32)
--- NOTE | 2017-12-25 23:33 | PHYS DOC ---
Past Medical History Past Medical History: Depression, Diabetes-Type II Past Surgical History: Cholecystectomy, Tubal ligation Additional Past Surgical Histo: lap band Alcohol Use: None Drug Use: None Adult General Chief Complaint Chief Complaint: KNEE SWELLING HPI HPI Patient is a 52 year old female who presents with knee pain after falling on Friday. Patient states she was working on her patio table and tripped and fell. Patient states is the same knee that she tore ligaments in a while back. Patient states she has a appointment to see Dr. Medina here at [facility] on January 05. Patient states ibuprofen is not helping the pain. Patient can't walk and ambulate on the leg but states that it hurts worse when she sitting or laying in bed. Patient has within normal range of motion but it is painful. Patient rates her pain a 9 out of 10. Review of Systems Review of Systems Constitutional: Denies fever or chills [] Eyes: Denies change in visual acuity, redness, or eye pain [] HENT: Denies nasal congestion or sore throat [] Respiratory: Denies cough or shortness of breath [] Cardiovascular: No additional information not addressed in HPI [] GI: Denies abdominal pain, nausea, vomiting, bloody stools or diarrhea [] : Denies dysuria or hematuria [] Musculoskeletal: Denies back pain. Left knee pain. [] Integument: Denies rash or skin lesions [] Neurologic: Denies headache, focal weakness or sensory changes [] Endocrine: Denies polyuria or polydipsia [] All other systems were reviewed and found to be within normal limits, except as documented in this note. Allergies Allergies Allergies Coded Allergies Type Severity Reaction Last Updated Verified Sulfa (Sulfonamide Antibiotics) Allergy Intermediate Hives 08/04/14 Yes Physical Exam Physical Exam Constitutional: Well developed, well nourished, no acute distress, non-toxic appearance. [] HENT: Normocephalic, atraumatic, bilateral external ears normal, oropharynx moist, no oral exudates, nose normal. [] Eyes: PERRLA, EOMI, conjunctiva normal, no discharge. [] Neck: Normal range of motion, no tenderness, supple, no stridor. [] Cardiovascular:Heart rate regular rhythm, no murmur [] Lungs & Thorax: Bilateral breath sounds clear to auscultation [] Abdomen: Bowel sounds normal, soft, no tenderness, no masses, no pulsatile masses. [] Skin: Warm, dry, no erythema, no rash. [] Back: No tenderness, no CVA tenderness. [] Extremities: No tenderness, no cyanosis, no clubbing, ROM intact, no edema. Left knee pain and tenderness with palpation. No deformity, edema, or bruising to the left knee. [] Neurologic: Alert and oriented X 3, normal motor function, normal sensory function, no focal deficits noted. [] Psychologic: Affect normal, judgement normal, mood normal. [] Current Patient Data Vital Signs Vital Signs Date Time Temp Pulse Resp B/P (MAP) Pulse Ox O2 Delivery O2 Flow Rate FiO2 12/25/17 22:21 98.0 96 20 126/69 (88) 95 Room Air 98.0 EKG EKG [] Radiology/Procedures Radiology/Procedures Left Knee x ray[] Impressions: No acute fracture. Xray read by Dr. Soto Course & Med Decision Making Course & Med Decision Making Upon examination patient has left patella tenderness. There is no deformity, edema or bruising noted. Patient can walk using and bearing weight on her left leg. Patient states is becoming more painful because of her working 12 hour shifts. Patient states she's been taking ibuprofen for pain and the pain is becoming unbearable. Patient states that he actually feels better when standing and walking but the pain worsens when she is sitting. Patient has range of motion and left knee but it is painful. She has a appointment with Dr. Medina on January 05. Pedal pulse present. Patient's x-ray show no acute findings and were read by Dr Soto. Patient is driving so I cannot give her pain medication here in the ED. Patient is going to have prescription for Dunbar for pain and follow-up with Dr. Medina as soon as possible. [] Dragon Disclaimer Dragon Disclaimer This electronic medical record was generated, in whole or in part, using a voice recognition dictation system. Departure Departure Impression: Primary Impression: Knee contusion Disposition: 01 HOME, SELF-CARE Condition: STABLE Referrals: DAMIEN BALTAZAR APRN (PCP) Patient Instructions: Knee - Patella Problems Additional Instructions: Keep your appointment with Dr. Medina. Use ibuprofen and the Dunbar for pain. Use the knee immobilizer and ice for pain. Scripts Hydrocodone/Apap 5-325 (NORCO 5-325 TABLET) 1 Each Tablet 1 TAB PO PRN Q6HRS PRN for PAIN, #6 TAB 0 Refills Prov: JANA HADLEY BURNISHER 12/25/17 Problem Qualifiers Primary Impression: Knee contusion Encounter type: initial encounter Laterality: left Qualified Codes: S80.02XA - Contusion of left knee, initial encounter JANA HADLEY BURNISHER Dec 25, 2017 23:33
--- NOTE | 2017-12-26 09:54 | RAD ---
EXAM: AP, lateral, oblique, tangential patellar views of the left knee DATE: 12/25/2017 10:13 PM INDICATION: Left KNEE PAIN COMPARISON: No Prior FINDINGS: No evidence of acute fracture or dislocation. Joint spaces are preserved on these nonweightbearing views although small osteophytes are seen at the medial and lateral compartment. No knee joint effusion. Neutral patellar tracking. IMPRESSION: 1. No evidence of acute fracture or dislocation. 2. Left knee joint degenerative changes with small medial and lateral compartment osteophytes. Electronically signed by: Ian Macedo MD (12/26/2017 9:50 AM) [facility]
== END 2017-12-25 23:51 | disposition home or self-care (01) ==
LOC: ER 21:40
DX: S80.02XA Contusion of left knee, initial encounter (principal); E11.9 Type 2 diabetes mellitus without complications; Z88.2 Allergy status to sulfonamides; W01.0XXA Fall on same level from slipping, tripping and stumbling without subsequent striking against object, initial encounter; Y93.89 Activity, other specified; Y92.89 Other specified places as the place of occurrence of the external cause; Y99.8 Other external cause status
CPT/HCPCS: 29515; 73564; 99284

== ENCOUNTER 2018-05-22 18:31 | Emergency (ER) | payer OTHER ==
[~2018-05-22] VITALS: Ht 152.4 cm; Wt 118.4 kg
[~2018-05-22 18:31] MED LIST changes: +HYDR-3164 PO; +METF500T16 PO; -METF500T5 PO
[2018-05-22] MEDS ORDERED: MECLIZINE HCL 12.5 MG TABLET. PO ONE (20:00)
[2018-05-22] MEDS ORDERED: KETOROLAC 30 MG/ML VIAL. IM ONE (20:00)
[2018-05-22] MEDS ORDERED: IV NORMAL SALINE 1000ML BAG 1,000 ML IV ONE (20:00)
--- NOTE | 2018-05-22 20:05 | PHYS DOC ---
Past Medical History Past Medical History: Depression, Diabetes-Type II Past Surgical History: Cholecystectomy, Tubal ligation Additional Past Surgical Histo: lap band Alcohol Use: None Drug Use: None Adult General Chief Complaint Chief Complaint: DIZZY/LIGHT HEADED HPI HPI Patient is a 52 year old female who presents with episode of vertigo back in April and today she states she is feeling the same way. He states she's not feeling as bad but is having the same symptoms of dizziness, headache that deviates down to her mid back. She denies any neck stiffness, numbness, tingling , weaknesses, chest pain, shortness of air, visual changes, LOC. She is ambulatory with a steady gait. She only vomited once today but wasn't responding her down. Patient states that she started feeling the symptoms at last night. Patient again states that this feels exactly like her vertigo last month but not as bad. Patient states she only took was Macarena aspirin. Alert and oriented. He shouldn't has no focal weaknesses. She is no loss of sensations. PERRLA. Skin pink Review of Systems Review of Systems Constitutional: Denies fever or chills [] Eyes: Denies change in visual acuity, redness, or eye pain [] HENT: Denies nasal congestion or sore throat [] Respiratory: Denies cough or shortness of breath [] Cardiovascular: No additional information not addressed in HPI [] GI: Denies abdominal pain, nausea, vomiting, bloody stools or diarrhea [] : Denies dysuria or hematuria [] Musculoskeletal: Denies back pain or joint pain [] Integument: Denies rash or skin lesions [] Neurologic: Denies headache, focal weakness or sensory changes [] Endocrine: Denies polyuria or polydipsia [] All other systems were reviewed and found to be within normal limits, except as documented in this note. Current Medications Current Medications Current Medications Medications (Trade) Dose Ordered Sig/Florentin Start Time Stop Time Status Last Admin Dose Admin Ketorolac Tromethamine (Toradol 30mg Vial) 30 mg 1X ONCE 05/22/18 20:00 05/22/18 20:01 DC 05/22/18 20:34 30 MG Meclizine HCl (Antivert) 25 mg 1X ONCE 05/22/18 20:00 05/22/18 20:01 DC 05/22/18 20:34 25 MG Sodium Chloride 1,000 ml @ 1,000 mls/hr 1X ONCE 05/22/18 20:00 05/22/18 20:59 DC 05/22/18 20:34 1,000 MLS/HR Allergies Allergies Allergies Coded Allergies Type Severity Reaction Last Updated Verified Sulfa (Sulfonamide Antibiotics) Allergy Intermediate Hives 08/04/14 Yes Physical Exam Physical Exam Constitutional: Well developed, well nourished, no acute distress, non-toxic appearance. [] HENT: Normocephalic, atraumatic, bilateral external ears normal, oropharynx moist, no oral exudates, nose normal. [] Eyes: PERRLA, EOMI, conjunctiva normal, no discharge. [] Neck: Normal range of motion, no tenderness, supple, no stridor. [] Cardiovascular:Heart rate regular rhythm, no murmur [] Lungs & Thorax: Bilateral breath sounds clear to auscultation [] Abdomen: Bowel sounds normal, soft, no tenderness, no masses, no pulsatile masses. [] Skin: Warm, dry, no erythema, no rash. [] Back: No tenderness, no CVA tenderness. [] Extremities: No tenderness, no cyanosis, no clubbing, ROM intact, no edema. [] Neurologic: Alert and oriented X 3, normal motor function, normal sensory function, no focal deficits noted. [] Psychologic: Affect normal, judgement normal, mood normal. [] Current Patient Data Vital Signs Vital Signs Date Time Temp Pulse Resp B/P (MAP) Pulse Ox O2 Delivery O2 Flow Rate FiO2 05/22/18 19:35 97.8 84 16 148/84 (105) 97 Room Air 97.8 Lab Values Laboratory Tests Test 05/22/18 20:25 White Blood Count 6.9 x10^3/uL (4.0-11.0) Red Blood Count 4.97 x10^6/uL (3.50-5.40) Hemoglobin 15.5 g/dL (12.0-15.5) Hematocrit 45.2 % (36.0-47.0) Mean Corpuscular Volume 91 fL (79-100) Mean Corpuscular Hemoglobin 31 pg (25-35) Mean Corpuscular Hemoglobin Concent 34 g/dL (31-37) Red Cell Distribution Width 14.1 % (11.5-14.5) Platelet Count 231 x10^3/uL (140-400) Neutrophils (%) (Auto) 60 % (31-73) Lymphocytes (%) (Auto) 28 % (24-48) Monocytes (%) (Auto) 7 % (0-9) Eosinophils (%) (Auto) 5 % (0-3) H Basophils (%) (Auto) 1 % (0-3) Neutrophils # (Auto) 4.1 x10^3uL (1.8-7.7) Lymphocytes # (Auto) 1.9 x10^3/uL (1.0-4.8) Monocytes # (Auto) 0.5 x10^3/uL (0.0-1.1) Eosinophils # (Auto) 0.3 x10^3/uL (0.0-0.7) Basophils # (Auto) 0.0 x10^3/uL (0.0-0.2) Sodium Level 141 mmol/L (136-145) Potassium Level 3.9 mmol/L (3.5-5.1) Chloride Level 101 mmol/L (98-107) Carbon Dioxide Level 31 mmol/L (21-32) Anion Gap 9 (6-14) Blood Urea Nitrogen 18 mg/dL (7-20) Creatinine 0.8 mg/dL (0.6-1.0) Estimated GFR (Cockcroft-Gault) 75.9 BUN/Creatinine Ratio 23 (6-20) H Glucose Level 113 mg/dL (70-99) H Calcium Level 9.2 mg/dL (8.5-10.1) Total Bilirubin 0.2 mg/dL (0.2-1.0) Aspartate Amino Transferase (AST) 24 U/L (15-37) Alanine Aminotransferase (ALT) 47 U/L (14-59) Alkaline Phosphatase 90 U/L (46-116) Total Protein 7.5 g/dL (6.4-8.2) Albumin 3.6 g/dL (3.4-5.0) Albumin/Globulin Ratio 0.9 (1.0-1.7) L Laboratory Tests 05/22/18 20:25 Laboratory Tests 05/22/18 20:25 EKG EKG [] Radiology/Procedures Radiology/Procedures [] Impressions: [facility] [address] [place] [address] IMAGING REPORT Signed PATIENT: GINA BACK ACCOUNT: [id number] : 1965 LOCATION: ER AGE: 52 SEX: F EXAM STATUS: REG ER ORD. PHYSICIAN: JANA HADLEY APRN REASON: DIZZINESS 20 PROCEDURE: CT HEAD WO CONTRAST CT scan of the head without contrast 05/22/2018 Clinical History: Dizziness. Technique: Unenhanced, contiguous, 5 mm axial sections were obtained through the head. One or more of the following individualized dose reduction techniques were utilized for this study: 1. Automated exposure control. 2. Adjustment of the mA and/or kV according to patient size. 3. Use of iterative reconstruction technique. Findings: Comparison study is dated 11/06/2017. The ventricles and sulci are within normal limits in size and configuration. No focal area of abnormal attenuation is seen involving the brain parenchyma. No extra-axial fluid collection is seen. No skull fracture is seen. Impression: Negative study. Electronically signed by: Wilver Rizo MD (05/22/2018 8:21 PM) [facility] DICTATED and SIGNED BY: WILVER RIZO MD DATE: 05/22/182018 Course & Med Decision Making Course & Med Decision Making Patient is a 52 year old female who presents with episode of vertigo back in April and today she states she is feeling the same way. He states she's not feeling as bad but is having the same symptoms of dizziness, headache that deviates down to her mid back. She denies any neck stiffness, numbness, tingling , weaknesses, chest pain, shortness of air, visual changes, LOC. She is ambulatory with a steady gait. She only vomited once today but wasn't responding her down. Patient states that she started feeling the symptoms at last night. Patient again states that this feels exactly like her vertigo last month but not as bad. Patient states she only took was Macarena aspirin. Alert and oriented. Has has no focal weaknesses. She is no loss of sensations. PERRLA. Skin pink warm and dry. Abdomen is soft and nontender. Heart rate regular without murmur. Lungs are clear to auscultation in all lobes. Heart rate 88, 90% on room air, 140/84, 20 respirations. Blood work unremarkable. CT head shows no acute findings. Patient states she is feeling much better and her pain is down to a 4/10. Patient states that the Meclizine has also helped her dizziness. Patient will be given a dose of a stronger pain medications before she leaves and I will give her a prescription for meclizine and [place]. Patient is to return for signs of stroke or worsening of condition, otherwise she should follow up with her primary care as soon as possible. Dragon Disclaimer Dragon Disclaimer This electronic medical record was generated, in whole or in part, using a voice recognition dictation system. NIHSS Stroke Scale NIH Stroke Scale: NIH Stroke Scale Response (Comments) Value Level of Consciousness: 0 Alert/Responsive 0 LOC Questions: 0 Answers both correctly 0 LOC Commands: 0 Performs both tasks 0 Best Gaze: 0 Normal 0 Visual: 0 No visual loss 0 Facial Palsy: 0 Normal, symmetrical 0 Motor - Left Arm 0 No drift 0 Motor - Right Arm 0 No drift 0 Motor - Left Leg 0 No drift 0 Motor: Right Leg 0 No drift 0 Limb Ataxia: 0 Absent 0 Sensory: 0 No loss 0 Best Language: 0 Normal 0 Dysathria: 0 Normal 0 Extinction and Inattention: 0 Normal 0 Total 0 Departure Departure Impression: Primary Impression: Vertigo Disposition: 01 HOME, SELF-CARE Condition: STABLE Referrals: DAMIEN BALTAZAR APRN (PCP) Patient Instructions: Vertigo Additional Instructions: Patient is to return for signs of stroke or worsening of condition, otherwise she should follow up with her primary care as soon as possible. Take medication as prescribed. Scripts Hydrocodone/Apap 5-325 (NORCO 5-325 TABLET) 1 Each Tablet 1 TAB PO PRN Q6HRS PRN for PAIN, #20 TAB 0 Refills Prov: JANA HADLEY APRN 05/22/18 Meclizine Hcl (MECLIZINE HCL) 25 Mg Tablet 1 TAB PO PRN TID, #30 TAB Prov: JANA HADLEY APRN 05/22/18 JANA HADLEY APRN May 22, 2018 20:05
--- NOTE | 2018-05-22 20:25 | RAD ---
CT scan of the head without contrast 05/22/2018 Clinical History: Dizziness. Technique: Unenhanced, contiguous, 5 mm axial sections were obtained through the head. One or more of the following individualized dose reduction techniques were utilized for this study: 1. Automated exposure control. 2. Adjustment of the mA and/or kV according to patient size. 3. Use of iterative reconstruction technique. Findings: Comparison study is dated 11/06/2017. The ventricles and sulci are within normal limits in size and configuration. No focal area of abnormal attenuation is seen involving the brain parenchyma. No extra-axial fluid collection is seen. No skull fracture is seen. Impression: Negative study. Electronically signed by: Wilver Rizo MD (05/22/2018 8:21 PM) [facility]
[2018-05-22 20:41] LABS: BASO % 1 % (0-3); EOS # 0.3 x10^3/uL (0.0-0.7); EOS % 5 % (0-3); HEMATOCRIT 45.2 % (36.0-47.0); HEMOGLOBIN 15.5 g/dL (12.0-15.5); LYMPH # 1.9 x10^3/uL (1.0-4.8); LYMPH % 28 % (24-48); MEAN CORPUSCULAR HEMOGLOBIN 31 pg (25-35); MEAN CORPUSCULAR HGB CONC 34 g/dL (31-37); MEAN CORPUSCULAR VOLUME 91 fL (79-100); MONO # 0.5 x10^3/uL (0.0-1.1); MONO % 7 % (0-9); NEUT # 4.1 x10^3uL (1.8-7.7); NEUT % 60 % (31-73); PLATELET COUNT 231 x10^3/uL (140-400); RED BLOOD COUNT 4.97 x10^6/uL (3.50-5.40); RED CELL DISTRIBUTION WIDTH 14.1 % (11.5-14.5); WHITE BLOOD COUNT 6.9 x10^3/uL (4.0-11.0)
[2018-05-22 20:45] LABS: CALCIUM 9.2 mg/dL (8.5-10.1); CREATININE 0.8 mg/dL (0.6-1.0); GFR 75.9; POTASSIUM 3.9 mmol/L (3.5-5.1)
[2018-05-22 20:51] LABS: ALBUMIN 3.6 g/dL (3.4-5.0); ALBUMIN/GLOBULIN RATIO 0.9 (1.0-1.7); TOTAL BILIRUBIN 0.2 mg/dL (0.2-1.0); TOTAL PROTEIN 7.5 g/dL (6.4-8.2)
[2018-05-22] MEDS ORDERED: HYDR-3164 PO (21:20)
[2018-05-22] MEDS ORDERED: MECL25TA3 PO (21:20)
[2018-05-22 21:39] VITALS: BP 140/83
== END 2018-05-22 21:45 | disposition home or self-care (01) ==
LOC: ER 18:31
DX: R42 Dizziness and giddiness (principal); R51 Headache; R11.10 Vomiting, unspecified; F32.9 Major depressive disorder, single episode, unspecified; E11.9 Type 2 diabetes mellitus without complications
CPT/HCPCS: 36415; 70450; 80053; 85025; 96360; 96372; 99284; J1885; J7030; J8597

== ENCOUNTER 2018-08-04 08:50 | Emergency (ER) | payer OTHER ==
[~2018-08-04] VITALS: Ht 152.4 cm; Wt 104.3 kg
[~2018-08-04 08:50] MED LIST changes: +MECL25TA3 PO
[2018-08-04 09:30] VITALS: BP 132/85
[2018-08-04] MEDS ORDERED: AMOX1TAB61 PO (10:29)
[2018-08-04] MEDS ORDERED: PRED20TA PO (10:29)
--- NOTE | 2018-08-04 10:30 | PHYS DOC ---
Past Medical History Past Medical History: Depression, Diabetes-Type II Additional Past Medical Histor: Vertigo Past Surgical History: Cholecystectomy, Tubal ligation Additional Past Surgical Histo: lap band Alcohol Use: None Drug Use: None Adult General Chief Complaint Chief Complaint: Congestion [facility] 52-year-old otherwise healthy female presents with 2 week history of sinus congestion and fever sinus pressure and purulent nasal drainage. She also feels like her ears are full. She has not had any visual changes.] Review of Systems Review of Systems Constitutional: Denies fever or chills [] Eyes: Denies change in visual acuity, redness, or eye pain [] HENT: Denies nasal congestion or sore throat [] Respiratory: Denies cough or shortness of breath [] Cardiovascular: No additional information not addressed in HPI [] GI: Denies abdominal pain, nausea, vomiting, bloody stools or diarrhea [] : Denies dysuria or hematuria [] Musculoskeletal: Denies back pain or joint pain [] Integument: Denies rash or skin lesions [] Neurologic: Denies headache, focal weakness or sensory changes [] Endocrine: Denies polyuria or polydipsia [] All other systems were reviewed and found to be within normal limits, except as documented in this note. Allergies Allergies Allergies Coded Allergies Type Severity Reaction Last Updated Verified Sulfa (Sulfonamide Antibiotics) Allergy Intermediate Hives 08/04/14 Yes Physical Exam Physical Exam Constitutional: Well developed, well nourished, appears uncomfortable, non- toxic appearance. [] HENT: Pain over both maxillary and sphenoid sinus. [] Eyes: PERRLA, EOMI, conjunctiva normal, no discharge. [] Neck: Normal range of motion, no tenderness, supple, no stridor. [] Cardiovascular:Heart rate regular rhythm, no murmur [] Lungs & Thorax: Bilateral breath sounds clear to auscultation [] Abdomen: Bowel sounds normal, soft, no tenderness, no masses, no pulsatile masses. [] Skin: Warm, dry, no erythema, no rash. [] Back: No tenderness, no CVA tenderness. [] Extremities: No tenderness, no cyanosis, no clubbing, ROM intact, no edema. [] Neurologic: Alert and oriented X 3, normal motor function, normal sensory function, no focal deficits noted. [] Psychologic: Affect normal, judgement normal, mood normal. [] Current Patient Data Vital Signs Vital Signs Date Time Temp Pulse Resp B/P (MAP) Pulse Ox O2 Delivery O2 Flow Rate FiO2 08/04/18 09:30 99.0 115 18 132/85 (101) 97 Room Air 99.0 EKG EKG [] Radiology/Procedures Radiology/Procedures [] Course & Med Decision Making Course & Med Decision Making Pertinent Labs and Imaging studies reviewed. (See chart for details) [] Dragon Disclaimer Dragon Disclaimer This electronic medical record was generated, in whole or in part, using a voice recognition dictation system. Departure Departure Impression: Primary Impression: Acute infection of sinus Disposition: HOME, SELF-CARE Condition: STABLE Referrals: DAMIEN BALTAZAR APRN (PCP) Patient Instructions: Sinusitis Additional Instructions: Return to the emergency department with any new or concerning symptoms Scripts Prednisone (PREDNISONE) 20 Mg Tablet 3 TAB PO DAILY PRN for COUGH, #15 TAB Prov: LUDY MAYNARD DO 08/04/18 Amoxicillin/Potassium Clav (AUGMENTIN 875-125 TABLET) 1 Each Tablet 1 TAB PO BID, #20 TAB Prov: LUDY MAYNARD DO 08/04/18 Problem Qualifiers Primary Impression: Acute infection of sinus Sinusitis location: maxillary Recurrence: not specified as recurrent Qualified Codes: J01.00 - Acute maxillary sinusitis, unspecified LUDY MAYNARD DO Aug 04, 2018 10:29
== END 2018-08-04 10:47 | disposition home or self-care (01) ==
LOC: ER 08:50
DX: J01.00 Acute maxillary sinusitis, unspecified (principal); J01.30 Acute sphenoidal sinusitis, unspecified; F32.9 Major depressive disorder, single episode, unspecified; E11.9 Type 2 diabetes mellitus without complications; Z90.49 Acquired absence of other specified parts of digestive tract; Z98.51 Tubal ligation status; Z88.2 Allergy status to sulfonamides
CPT/HCPCS: 99283

== ENCOUNTER 2018-11-27 06:13 | Day surgery (SDC) | payer OTHER ==
[~2018-11-27] VITALS: Ht 152.4 cm; Wt 117.0 kg
[~2018-11-27 06:13] MED LIST changes: +AMOX1TAB61 PO; +EPINEPHrine VIAL 30 MG/30 ML VIAL ONE; +LIDOCAINE 1%/EPI 1:100,000 20 ML VIAL. ONE; +MUPIROCIN 2 % NASAL OINTMENT 22GM TUBE. ONE; +OXYMETAZOLINE 0.05% NASAL SPRAY 30ML BOTTLE. NS ONE; -PANT40TA3 PO; +PANT40TA77 PO; +PHENYLEPHRINE 0.25% NASAL SPRAY 15ML BOTTLE. NS ONE; +PRED20TA PO
[2018-11-27] MEDS ORDERED: DOXY100C14 PO (06:14)
[2018-11-27] MEDS ORDERED: CHOL500016 PO (06:14)
[2018-11-27] MEDS ORDERED: LISI-334 PO (06:14)
[2018-11-27] MEDS ORDERED: MORPHINE SULFATE 2 MG/ML VIAL. IV PRN (07:00)
[2018-11-27] MEDS ORDERED: HYDROmorphone 2 MG/ML VIAL IV PRN (07:00)
[2018-11-27] MEDS ORDERED: PROCHLORPERAZINE 10 MG/2 ML VIAL. IV PRN (07:00)
[2018-11-27] MEDS ORDERED: LIDOCAINE 1% PF 2 ML VIAL. ID PRN (07:00)
[2018-11-27] MEDS ORDERED: IV RINGERS,LACTATED 1000ML 1,000 ML IV SCH (07:00)
[2018-11-27] MEDS ORDERED: fentaNYL PF VIAL 100 MCG/2 ML VIAL IV PRN ×2 (07:00)
[2018-11-27] MEDS ORDERED: OXYMETAZOLINE 0.05% NASAL SPRAY 30ML BOTTLE. NS ONE (07:00)
[2018-11-27] MEDS ORDERED: ceFAZolin 2GM PREMIX 2 GM/50 ML BAG IV ONE (07:00)
[2018-11-27] MEDS ORDERED: TRIAMCINOLONE ACET/PF OPHTH 40 MG/ML VIAL. IO ONE (07:15)
[2018-11-27] MEDS ORDERED: DEXAMETHASONE SOD PHOS 4 MG/ML VIAL ONE (07:17)
[2018-11-27] MEDS ORDERED: ROCURONIUM 50 MG/5 ML VIAL. ONE (07:17)
[2018-11-27] MEDS ORDERED: FAMOTIDINE 20 MG/2 ML VIAL ONE (07:17)
[2018-11-27] MEDS ORDERED: SUCCINYLCHOLINE 200 MG/10 ML VIAL. ONE (07:17)
[2018-11-27] MEDS ORDERED: ONDANSETRON PF 4 MG/2 ML VIAL. ONE (07:17)
[2018-11-27] MEDS ORDERED: PROPOFOL 20 ML IV ONE (07:17)
[2018-11-27] MEDS ORDERED: MIDAZOLAM HCL/PF 2 MG/2 ML VIAL. ONE (07:18)
[2018-11-27] MEDS ORDERED: fentaNYL PF VIAL 100 MCG/2 ML VIAL ONE ×4 (07:18→11:45)
[2018-11-27] MEDS ORDERED: GLYCOPYRROLATE 1 MG/5 ML VIAL. ONE (10:28)
[2018-11-27] MEDS ORDERED: NEOSTIGMINE METHYLSULFATE 5 MG/5 ML SYRINGE. ONE (10:28)
--- NOTE | 2018-11-27 10:53 | PDOC4 ---
IMMEDIATE POST OP NOTE Date: Nov 27, 2018 Pre-Op Diagnosis chronic pansinusitis, chronic eustachian tube dysfunction, bilateral inferior turbinate hypertrophy Post-Op Diagnosis same as above Procedure Performed Bilateral Functional Endoscopic Sinus surgery under Image Guidance Navigation to include bilateral medial maxillary antrostomy, bilateral total ethmoidectomy, bilateral sphenoidotomy, bilateral frontal sinusotomy, bilateral eustachian tube dilation, bilateral inferior turbinate reduction Surgeon Dr. Paty Zamudio Lumber Grader none Anesthesiologist Dr. Brandt Anesthesia Type: General Blood Loss 250mL Specimens Obtained right maxillary sinus culture Findings 1. Inflamed mucosa throughout all operated sinuses. 2. Black purulent discharge within right maxillary/ethmoid sinuses 3. Inflamed tissue around torus tubaris, left > right 4. Bilateral inferior turbinate hypertrophy Complications none Operative Note Dictation #[id number] PATY ZAMUDIO MD Nov 27, 2018 10:53
[2018-11-27] MEDS ORDERED: OXYC1TAB15 PO (10:55)
[2018-11-27] MEDS ORDERED: PRED-220 PO (10:57)
[2018-11-27] MEDS ORDERED: AMOX1TAB11 PO (10:57)
[2018-11-27] MEDS ORDERED: SEVOFLURANE > 120 MINUTES. IH ONE (11:27)
--- NOTE | 2018-11-27 11:45 | OP ---
DATE OF SURGERY: 11/27/2018 PREOPERATIVE DIAGNOSES: Chronic pansinusitis, chronic eustachian tube dysfunction, bilateral inferior turbinate hypertrophy. POSTOPERATIVE DIAGNOSES: Chronic pansinusitis, chronic eustachian tube dysfunction, bilateral inferior turbinate hypertrophy. PROCEDURE PERFORMED: Bilateral functional endoscopic sinus surgery under image guidance navigation to include bilateral medial maxillary antrostomy, bilateral total ethmoidectomy, bilateral sphenoidotomy and bilateral frontal sinusotomy, bilateral eustachian tube dilation, bilateral inferior turbinate reduction. SURGEON: Paty Zamudio MD ANESTHESIA: General endotracheal anesthesia. ANESTHESIOLOGIST: Dr. Brandt. ESTIMATED BLOOD LOSS: 250 mL. INDICATIONS FOR SURGERY: The patient is a 53-year-old female who has had continued recurrent episodes of severe sinus infection with associated dizziness requiring multiple hospitalizations. On CT imaging, the patient was found to have inflammatory tissue throughout the sinuses and continues to have recurrent episodes despite maximal medical treatment. The decision was made for the patient to undergo the above procedure after the risks, benefits, and alternatives of surgery were thoroughly discussed with the patient and informed consent was obtained. SPECIMEN OBTAINED: Right maxillary sinus culture. INTRAOPERATIVE FINDINGS: 1. Inflamed mucosa throughout all the operated sinuses. 2. Salma purulent discharge within the right maxillary and right ethmoid sinuses. 3. Inflamed tissue around the torus tubarius, left greater than right. 4. Bilateral inferior turbinate hypertrophy. DESCRIPTION OF THE PROCEDURE: The patient was brought back to the operating room per Anesthesia and intubated in standard fashion. The patient was then turned 90 degrees in the room. Her nasal vestibular hairs were trimmed and Afrin-soaked pledgets were inserted into the patient's nasal cavity bilaterally. The patient was then prepped and draped in the standard fashion. The Zumper image guidance system was then setup and verified for accuracy. This was used throughout the case to ensure complete dissection and the patient's safety. A 30-degree scope was then used to visualize the patient's nasal cavity. I injected the attachment of the middle turbinate and lateral nasal wall. The posterior sphenopalatine artery would enter into the posteriorly where the sphenopalatine artery entered into the sinus cavity and the anterior septum bilaterally using 1% lidocaine with 1:100,000 epinephrine. I then further used a 30-degree scope to visualize the patient's nasopharynx. The patient had no significant adenoid tissue; however, the mucosa along the posterior aspect of the torus tubarius was significantly inflamed, especially on the left side. The Entellus low profile balloon dilator system was setup and configured to the eustachian tube orientation. This was gently inserted into the right eustachian tube orifice. The balloon was then placed over the probe and insufflated to 12 atmospheres of pressure for 2 minutes. The balloon and the probe were then completely removed. The eustachian tube opening was more widely patent and there was no evidence of trauma. An identical procedure was performed on the left side with the similar results. I then performed the right-sided ethmoid sinus surgery. Then, using a Corona elevator, the middle turbinate was medialized. There was salma purulent discharge emanating from posterior to the uncinate process. This was cultured and thoroughly aspirated. A backbiter forceps was then used to resect the most inferior portion of the vertical process of the uncinate. The vertical and horizontal processes were then medialized and completely resected. The natural ostium of the maxillary sinus was identified. This was widened both anteriorly and posteriorly until it was widely patent. I then thoroughly irrigated the sinus on this side to completely remove the infection. I then punctured through the anterior ethmoid bulla and performed an ethmoidectomy, continued posteriorly in this plane in the medial and inferior plane until I came to the face of the sphenoid. There was inflammatory tissue of the mucosa throughout these operated sinuses. At the face of the sphenoid, I dissected through the posterior aspect of the middle turbinate. I identified the superior turbinate and just medial to the inferior portion of the superior turbinate I identified the natural ostium of the sphenoid sinus. This was widened with sharp dissection superiorly to the skull base and laterally to the lamina papyracea. I then used a 30-degree scope to visualize the skull base. I removed all of the ethmoid air cells off of the skull base traveling from a posterior to an anterior direction. Anteriorly, I identified the frontal sinus outflow tract in the medial and anterior planes. The suprabullar ethmoid air cell was resected as well as the posterior wall of the agger nasi cell to ensure that the frontal sinus outflow tract was widely patent. Topical epinephrine was placed in the lower lung, all the operated sinuses for hemostasis for several minutes. This was subsequently removed and all the sinuses were thoroughly irrigated and adequate hemostasis was confirmed. The middle turbinate was bulgerized to the septum. Using a sickle knife, a Propel contour implant was placed within the frontal sinus outflow tract and the Propel standard implant was placed within the posterior ethmoid sinuses. My attention was then taken to the left nasal cavity. I again medialized the middle turbinate to identify the uncinate process. There was inflamed tissue, but no salma purulence noted. Using a backbiter forceps, I resected the most inferior portion of the vertical process of the uncinate The vertical and horizontal processes of the uncinate were then medialized and completely resected. The natural ostium of the maxillary sinus was identified. This was widened both anteriorly and posteriorly until it was widely patent. I then performed an ethmoidectomy in standard fashion. Beginning in the medial inferior plane, I dissected through the anterior ethmoid bulla. I continued this plane posteriorly until I encountered the face of the sphenoid sinus. At the face of the sphenoid sinus, I dissected through the posterior aspect of the middle turbinate. I identified the superior turbinate and just medial to the inferior portion, I identified the natural ostium of the sphenoid sinus. The natural ostium of the sphenoid sinus was widened superiorly to the skull base and laterally to the lamina papyracea using sharp dissection. There was inflammatory tissue throughout all of the sinuses, although no salma purulence was seen. I then used a 30-degree scope to visualize the skull base. Traveling from a posterior to anterior direction, I removed all of the ethmoid air cells off of the skull base. Anteriorly, I identified the frontal sinus outflow tract in the medial plane. There were ethmoid cells along the lamina papyracea that were narrowing this and the lateral wall of this were completely resected to widen the frontal sinus outflow tract widely. After all the operated sinuses have been thoroughly opened, I placed topical epinephrine for several minutes for hemostasis. This was removed and all the operated sinuses were thoroughly irrigated with normal saline. The middle turbinate was bulgerized to the septum using a sickle knife. The Propel contour implant was placed within the frontal outflow tract and the Propel standard implant was placed within the posterior ethmoid sinuses. I did use suction Bovie electrocautery along the inferior dissection of the sphenoid ostium bilaterally for hemostasis. I then performed a bilateral inferior turbinate reduction. Beginning on the left side, I cut into the anterior aspect of the inferior turbinate using the microdebrider. I then resected the excess mucosa along the entire length of the inferior turbinate along its lateral and inferior border as well as resecting the posterior mulberry tissue. I then elevated the residual mucosa off the most inferior portion of the turbinate bone. I did a very conservative resection almost of the inferior portion of the turbinate bone using a Greg-Cut forceps. The residual mucosa was then trimmed and redraped from the residual turbinate bone and the residual turbinate bone was outfractured. Suction Bovie electrocautery was used for hemostasis along the cut edge of the inferior turbinate along its entire length, especially noted posteriorly along the mulberry tissue region. After this was completed, the nasal airway was widely patent on this side. An identical procedure was performed on the right and the nasal cavity was widely patent. The nasal cavity was again thoroughly aspirated. An orogastric tube was placed to suction out all the stomach and hypopharyngeal contents. The patient was turned back over to anesthesia and extubated without complication. Sponge, needle and instrument counts were correct at the end of the case. COMPLICATIONS: None. DISPOSITION: Stable and transferred to recovery room. PATY AZMUDIO MD DR: CODI/sara JOB#: [id number] / [id number]
[2018-11-27 13:20] VITALS: BP 151/81
== END 2018-11-27 14:00 | disposition home or self-care (01) ==
LOC: SURG 06:13
PROVIDERS: ATTEND Otolaryngology
DX: J32.0 Chronic maxillary sinusitis (principal); J32.2 Chronic ethmoidal sinusitis; J32.1 Chronic frontal sinusitis; J32.3 Chronic sphenoidal sinusitis; H69.83 Other specified disorders of Eustachian tube, bilateral; J34.3 Hypertrophy of nasal turbinates; I10 Essential (primary) hypertension; Z90.49 Acquired absence of other specified parts of digestive tract; Z98.890 Other specified postprocedural states; Z90.710 Acquired absence of both cervix and uterus; Z88.1 Allergy status to other antibiotic agents; Z79.899 Other long term (current) drug therapy
CPT/HCPCS: 30140; 31253; 31256; 31257; 69436; 82962; 87071; 87075; 87186; A7015; C1713; J0171; J0330; J0696; J1100; J2250; J2405; J2704; J2710; J3010; J3301; J3490; J7120

== ENCOUNTER → 2019-01-27 | Outpatient (CLI) | payer OTHER ==
[~2019-01-27] MED LIST changes: +AMOX1TAB11 PO; +CHOL500016 PO; +DOXY100C14 PO; -EPINEPHrine VIAL 30 MG/30 ML VIAL ONE; -LIDOCAINE 1%/EPI 1:100,000 20 ML VIAL. ONE; +LISI-334 PO; -MUPIROCIN 2 % NASAL OINTMENT 22GM TUBE. ONE; +OXYC1TAB15 PO; -OXYMETAZOLINE 0.05% NASAL SPRAY 30ML BOTTLE. NS ONE; -PHENYLEPHRINE 0.25% NASAL SPRAY 15ML BOTTLE. NS ONE; +PRED-220 PO
[2019-01-27 08:48] LABS: ALBUMIN 3.9 g/dL (3.4-5.0); ALBUMIN/GLOBULIN RATIO 1.2 (1.0-1.7); CALCIUM 9.2 mg/dL (8.5-10.1); CREATININE 0.9 mg/dL (0.6-1.0); POTASSIUM 3.8 mmol/L (3.5-5.1); TOTAL BILIRUBIN 0.6 mg/dL (0.2-1.0); TOTAL PROTEIN 7.2 g/dL (6.4-8.2)
[2019-01-27 08:49] LABS: CHOLESTEROL/HDL RATIO 3.9
[2019-01-27 23:08] LABS: HEMOGLOBIN A1C 6.6 % (4.8-5.6)
== END | disposition home or self-care (01) ==
LOC: LAB 08:04
PROVIDERS: ATTEND Family Medicine
DX: E11.69 Type 2 diabetes mellitus with other specified complication (principal); E55.9 Vitamin D deficiency, unspecified
CPT/HCPCS: 36415; 80053; 80061; 82043; 82306; 83036

== ENCOUNTER 2019-02-15 19:00 | Emergency (ER) | payer OTHER ==
[~2019-02-15] VITALS: Ht 152.4 cm; Wt 117.9 kg
[2019-02-15 19:16] VITALS: BP 139/79
[2019-02-15] MEDS ORDERED: NAPR-514 PO (20:00)
--- NOTE | 2019-02-15 20:00 | PHYS DOC ---
Past Medical History Past Medical History: Depression, Diabetes-Type II, High Cholesterol, Hyp ertension Additional Past Medical Histor: Vertigo Past Surgical History: Cholecystectomy, Tonsillectomy, Tubal ligation Additional Past Surgical Histo: lap band Alcohol Use: None Drug Use: None Adult General Chief Complaint Chief Complaint: SHOULDER INJURY [facility] HPI 53-year-old female presents with pain underneath her left shoulder blade. She states she was: A lapbelt off of a patient upstairs today when she felt a tearing underneath her shoulder blade. She states she saw her primary care physician today and he prescribed her Flexeril which did help with some of the symptoms but symptoms worsened throughout the day. She states any specific movement and lifting does make it worse. She denies any radiation. States the pain is burning in nature and severe.[] Review of Systems Review of Systems Constitutional: Denies fever or chills [] Eyes: Denies change in visual acuity, redness, or eye pain [] HENT: Denies nasal congestion or sore throat [] Respiratory: Denies cough or shortness of breath [] Cardiovascular: No additional information not addressed in HPI [] GI: Denies abdominal pain, nausea, vomiting, bloody stools or diarrhea [] : Denies dysuria or hematuria [] Musculoskeletal: Per history of present illness[] Integument: Denies rash or skin lesions [] Neurologic: Denies headache, focal weakness or sensory changes [] Endocrine: Denies polyuria or polydipsia [] All other systems were reviewed and found to be within normal limits, except as documented in this note. Allergies Allergies Allergies Coded Allergies Type Severity Reaction Last Updated Verified Sulfa (Sulfonamide Antibiotics) Allergy Intermediate Hives 11/27/18 Yes Physical Exam Physical Exam Constitutional: Well developed, well nourished, no acute distress, non-toxic appearance. [] Neck: Normal range of motion, no tenderness, supple, no stridor. [] Cardiovascular:Heart rate regular rhythm, no murmur [] Lungs & Thorax: Bilateral breath sounds clear to auscultation [][] Skin: Warm, dry, no erythema, no rash. [] Back: She has left side rhomboid tenderness muscle spasm pain is worse with movement of the left shoulder blade. [] Extremities: No tenderness, no cyanosis, no clubbing, ROM intact, no edema. [] Neurologic: Alert and oriented X 3, normal motor function, normal sensory function, no focal deficits noted. [] Psychologic: Anxious[] Current Patient Data Vital Signs Vital Signs Date Time Temp Pulse Resp B/P (MAP) Pulse Ox O2 Delivery O2 Flow Rate FiO2 02/15/19 19:16 97.7 112 16 139/79 (99) 95 Room Air 97.7 EKG EKG [] Radiology/Procedures Radiology/Procedures [] Course & Med Decision Making Course & Med Decision Making Pertinent Labs and Imaging studies reviewed. (See chart for details) [ED course: Evaluation reveals a 53-year-old female with left-sided rhomboid muscle spasm. She was given Toradol 60 mg IM during her stay in the department. I did let her know that I thought Flexeril was an excellent choice for maintenance at home. I've encouraged her to follow with a physical therapist to start some ultrasound or electrical stim in this area. I've encouraged her to follow back with her primary care physician as well.] Dragon Disclaimer Dragon Disclaimer This electronic medical record was generated, in whole or in part, using a voice recognition dictation system. Departure Departure Impression: Primary Impression: Rhomboid muscle pain Disposition: HOME, SELF-CARE Condition: STABLE Referrals: WALESKA BROWNE MD (PCP) Patient Instructions: Muscle Strain, [id number] Additional Instructions: Follow with physical therapy this week for definitive care. Continue to take her Flexeril as directed. Return to the emergency department with any new or concerning symptoms Scripts Naproxen (NAPROXEN) 500 Mg Tablet 1 TAB PO BID PRN for PAIN, #30 TAB 1 Refill Prov: LUDY MAYNARD DO 02/15/19 LUDY MAYNARD DO Feb 15, 2019 20:00
[2019-02-15] MEDS ORDERED: KETOROLAC 60 MG/2 ML VIAL. IM ONE (20:15)
== END 2019-02-15 20:17 | disposition home or self-care (01) ==
LOC: ER 19:00
DX: M62.838 Other muscle spasm (principal); F32.9 Major depressive disorder, single episode, unspecified; E11.9 Type 2 diabetes mellitus without complications; E78.00 Pure hypercholesterolemia, unspecified; I10 Essential (primary) hypertension; Z90.49 Acquired absence of other specified parts of digestive tract; Z90.89 Acquired absence of other organs; Z98.51 Tubal ligation status; Z88.2 Allergy status to sulfonamides
CPT/HCPCS: 96372; 99283; J1885

== ENCOUNTER → 2019-11-26 | Outpatient (CLI) | payer OTHER ==
[~2019-11-26] MED LIST changes: +MECL-75 PO; -MECL25TA3 PO; +NAPR-514 PO
[2019-11-26 09:37] LABS: BASO # 0.1 x10^3/uL (0.0-0.2); BASO % 1 % (0-3); EOS # 0.5 x10^3/uL (0.0-0.7); EOS % 7 % (0-3); HEMATOCRIT 43.4 % (36.0-47.0); HEMOGLOBIN 14.9 g/dL (12.0-15.5); LYMPH # 1.4 x10^3/uL (1.0-4.8); LYMPH % 22 % (24-48); MEAN CORPUSCULAR HEMOGLOBIN 30 pg (25-35); MEAN CORPUSCULAR HGB CONC 34 g/dL (31-37); MEAN CORPUSCULAR VOLUME 88 fL (79-100); MONO # 0.5 x10^3/uL (0.0-1.1); MONO % 7 % (0-9); NEUT % 62 % (31-73); PLATELET COUNT 197 x10^3/uL (140-400); RED BLOOD COUNT 4.96 x10^6/uL (3.50-5.40); RED CELL DISTRIBUTION WIDTH 14.2 % (11.5-14.5); WHITE BLOOD COUNT 6.4 x10^3/uL (4.0-11.0)
[2019-11-26 09:56] LABS: ALBUMIN/GLOBULIN RATIO 1.1 (1.0-1.7); CALCIUM 9.1 mg/dL (8.5-10.1); CREATININE 0.9 mg/dL (0.6-1.0); GFR 65.8; POTASSIUM 4.2 mmol/L (3.5-5.1); TOTAL BILIRUBIN 0.4 mg/dL (0.2-1.0); TOTAL PROTEIN 7.6 g/dL (6.4-8.2)
[2019-11-26 18:10] LABS: CREAT RD UR 184.5 mg/dL (Not Estab.)
[2019-11-27 07:16] LABS: HEMOGLOBIN A1C 6.7 % (4.8-5.6)
== END | disposition home or self-care (01) ==
LOC: LAB 09:04
PROVIDERS: ATTEND Family Medicine
DX: E11.69 Type 2 diabetes mellitus with other specified complication (principal); I10 Essential (primary) hypertension
CPT/HCPCS: 36415; 80053; 80061; 82043; 82570; 83036; 85025

== ENCOUNTER → 2020-03-10 | Day surgery (SDC) | payer OTHER ==
[~2020-03-10] MED LIST changes: +ATOR20TA PO; +DULO40CA2 PO; +HYDROmorphone 2 MG/ML VIAL IV PRN; +IV RINGERS,LACTATED 1000ML 1,000 ML IV SCH; +LIDOCAINE 2% PF 5 ML VIAL. ONE; +METH-38 PO; +MORPHINE SULFATE 2 MG/ML VIAL. IV PRN; +ONDANSETRON PF 4 MG/2 ML VIAL. IV PRN; +PROCHLORPERAZINE 10 MG/2 ML VIAL. IV PRN; +PROPOFOL 10 MG/ML (20ML) VIAL. IV ONE; +fentaNYL PF VIAL 100 MCG/2 ML VIAL IV PRN
[2020-03-10 07:42] VITALS: BP 171/92
--- NOTE | 2020-03-10 07:57 | HP ---
ADMIT DATE: 03/10/2020 UPDATED HISTORY AND PHYSICAL REFERRING PHYSICIAN: Geri Salgado. REASON FOR CONSULTATION: Colorectal screening. HISTORY OF PRESENT ILLNESS: A 54-year-old female with past medical history significant for hyperlipidemia, has also had reflux and prior cholecystectomy, hysterectomy and lap band surgery, who is seen for screening colon. Bowel habits are regular without diarrhea or constipation. There has been no melena or hematochezia. Weight and appetite are stable. No family history of colon polyps or colon cancer is noted. PAST MEDICAL HISTORY: GERD and status post cholecystectomy, hysterectomy, depression, hypertension. ALLERGIES: SULFA. MEDICATIONS: Include Lipitor, vitamin D, and duloxetine. FAMILY HISTORY: Significant for diabetes with her mother and hypertension with her mother, stroke with heart attack with sibling and stroke with paternal grandmother. SOCIAL HISTORY: Nonsmoker and nondrinker. PAST SURGICAL HISTORY: Status post cholecystectomy, hysterectomy, weight loss surgery. REVIEW OF SYSTEMS: Per records. PHYSICAL EXAMINATION: GENERAL: Reveals a well-nourished, well-developed female who is alert, cooperative, in no acute distress. VITAL SIGNS: Temperature 97.2, pulse 85, respirations 20. LUNGS: Clear. CARDIOVASCULAR: Reveals an S1, S2 without S3, S4 or appreciable murmur. ABDOMEN: Soft abdomen, normal bowel sounds, without appreciable hepatosplenomegaly. EXTREMITIES: Reveals no cyanosis, clubbing or edema. IMPRESSION: Colorectal screening is warranted. Risks and benefits of procedure have been discussed with the patient including risk of hemorrhage or perforation. She is willing to proceed. ZOLTAN POOLE MD DR: LISA/sara JOB#: [id number] / [id number] Geri Leon
== END ==
LOC: ENDOS 06:02
PROVIDERS: ATTEND Internal Medicine Gastroenterology
DX: Z12.11 Encounter for screening for malignant neoplasm of colon (principal); Z20.828 Contact with and (suspected) exposure to other viral communicable diseases; K21.9 Gastro-esophageal reflux disease without esophagitis; I10 Essential (primary) hypertension; F32.9 Major depressive disorder, single episode, unspecified; Z90.49 Acquired absence of other specified parts of digestive tract; E78.5 Hyperlipidemia, unspecified; Z88.2 Allergy status to sulfonamides; Z79.899 Other long term (current) drug therapy; Z82.49 Family history of ischemic heart disease and other diseases of the circulatory system; Z83.3 Family history of diabetes mellitus
CPT/HCPCS: 45378; 87426; C9803; J2704; U0003

== ENCOUNTER 2020-03-16 08:53 | Emergency (ER) | payer OTHER ==
[~2020-03-16] VITALS: Ht 152.4 cm; Wt 120.9 kg
[~2020-03-16 08:53] MED LIST changes: -HYDROmorphone 2 MG/ML VIAL IV PRN; -IV RINGERS,LACTATED 1000ML 1,000 ML IV SCH; -LIDOCAINE 2% PF 5 ML VIAL. ONE; -METH-38 PO; -MORPHINE SULFATE 2 MG/ML VIAL. IV PRN; -ONDANSETRON PF 4 MG/2 ML VIAL. IV PRN; -PROCHLORPERAZINE 10 MG/2 ML VIAL. IV PRN; -PROPOFOL 10 MG/ML (20ML) VIAL. IV ONE; -fentaNYL PF VIAL 100 MCG/2 ML VIAL IV PRN
[2020-03-16] MEDS ORDERED: diazePAM 5 MG TABLET PO ONE (09:15)
--- NOTE | 2020-03-16 09:27 | ED.ADGEN ---
Past Medical History Past Medical History: Depression, Diabetes-Type II, High Cholesterol, Hyp ertension Additional Past Medical Histor: Vertigo Past Surgical History: Cholecystectomy, Tonsillectomy, Tubal ligation Additional Past Surgical Histo: lap band Smoking Status: Never Smoker Alcohol Use: None Drug Use: None General Adult EDM: Chief Complaint: LOWER BACK PAIN OR INJURY HPI: HPI: Patient is a 54-year-old female who presents to the emergency room complaining of of right thoracic back pain that radiates down her right buttock and into her leg. She states that it feels exactly like her sciatica. She has a long history of sciatica. She typically is able to take a hot shower and it will go away, however this did not help. She has been moving and unpacking things over the last few days and is unsure if this is the cause of her exacerbation. She states it feels like a spasm pain. She denies any hematuria, dysuria, abdominal pain, dizziness, nausea, vomiting. She does not think that this is related to a kidney stone or kidney infection. Review of Systems: Review of Systems: Complete ROS is negative unless otherwise documented in HPI Current Medications: Current Medications Medications (Trade) Dose Ordered Sig/Florentin Start Time Stop Time Status Last Admin Dose Admin Diazepam (Valium) 5 mg 1X ONCE 03/16/20 09:15 03/16/20 09:16 DC 03/16/20 09:21 5 MG Allergies: Allergies: Allergies Coded Allergies Type Severity Reaction Last Updated Verified Sulfa (Sulfonamide Antibiotics) Allergy Intermediate Hives 03/10/20 Yes Physical Exam: PE: General: Awake, alert, NAD. Well Nourished, well hydrated. Cooperative HEENT: Atraumatic, EOMI, PERRL, airway patent, moist oral mucosa Neck: Supple, trachea midline Respiratory: CTA bilaterally, normal effort, no wheezing/crackles CV: RRR, no murmur, cap refill <2 GI: Soft, nondistended, nontender, no masses MSK: No obvious deformities, right-sided flank tenderness with muscle spasm Skin: Warm, dry, intact Neuro: A&O x3, speech NL, sensory and motor grossly intact, no focal deficits Psych: Normal affect, normal mood, not suicidal or homicidal Current Patient Data: Vital Signs: Vital Signs Date Time Temp Pulse Resp B/P (MAP) Pulse Ox O2 Delivery O2 Flow Rate FiO2 11/5/20 10:00 95 141/89 (106) 91 Room Air 03/16/20 09:00 98.3 16 98.3 EKG: EKG: [] Heart Score: Risk Factors: Risk Factors: DM, Current or recent (<one month) smoker, HTN, HLP, family history of CAD, obesity. Risk Scores: Score 0 - 3: 2.5% MACE over next 6 weeks - Discharge Home Score 4 - 6: 20.3% MACE over next 6 weeks - Admit for Clinical Observation Score 7 - 10: 72.7% MACE over next 6 weeks - Early Invasive Strategies Radiology/Procedures: Radiology/Procedures: [] Course & Med Decision Making: Course & Med Decision Making Pertinent Labs and Imaging studies reviewed. (See chart for details) Patient is a 54-year-old female who presents to the emergency room complaining of right back pain that radiates into her leg suggestive of sciatica. Patient has a history of sciatica and feels that this feels similar. She does not have any urinary symptoms that would suggest she needs a urinary work-up at this time. She is very well-appearing and pain has been ongoing for the last couple of days. This makes an aneurysm highly unlikely. Patient denies bowel incontinence, urinary retention, fever, numbness, weakness. On exam, patient does not have a neurologic deficits, saddle anesthesia, gait difficulty, signs of trauma, or wounds near area of pain. Patient does not have a history of cancer or prolonged steroid use. At this time, patient does not have any signs, symptoms, or risk factors of emergent causes of back pain making cauda equina, spinal abscess, transverse myelitis, fractures, and other causes of emergent back pain highly unlikely. At this time, patient does not need any further work up for their back pain and will be treated symptomatically. Patient would like symptomatic treatment at this time. She was given Valium to help with muscle spasms. Patient feeling significantly better and would like to go home. Will prescribe her muscle relaxers. Patient's test results and vitals while in the ED were fully reviewed and discussed with the patient. Patient is stable and at this time does not need admission to the hospital. We have discussed strict return precautions and the importance of following up with their Primary Care Physician. Patient stated understanding and was given an opportunity to ask any questions. Patient is in agreement with plan. Ricardo Disclaimer: Dragon Disclaimer: This electronic medical record was generated, in whole or in part, using a voice recognition dictation system. Departure Departure Impression: Primary Impression: Sciatica Disposition: 01 DC HOME SELF CARE/HOMELESS Condition: STABLE Referrals: WALESKA BROWNE MD (PCP) Patient Instructions: Sciatica Scripts Methocarbamol (ROBAXIN-750) 750 Mg Tablet 1 TAB PO TID PRN for MUSCLE SPASMS for 10 Days, #30 TAB 0 Refills Prov: CHESTER GALLEGOS MD 03/16/20 CHESTER GALLEGOS MD Mar 16, 2020 09:27
[2020-03-16 10:00] VITALS: BP 141/89
[2020-03-16] MEDS ORDERED: METH-38 PO (10:11)
== END 2020-03-16 10:26 | disposition home or self-care (01) ==
LOC: ER 08:53
DX: M54.41 Lumbago with sciatica, right side (principal); E11.9 Type 2 diabetes mellitus without complications; I10 Essential (primary) hypertension; E78.00 Pure hypercholesterolemia, unspecified; Z90.49 Acquired absence of other specified parts of digestive tract; Z90.89 Acquired absence of other organs; Z98.51 Tubal ligation status
CPT/HCPCS: 99283

== ENCOUNTER 2020-03-18 14:14 | Emergency (ER) | payer OTHER ==
[~2020-03-18] VITALS: Ht 152.4 cm; Wt 121.0 kg
[~2020-03-18 14:14] MED LIST changes: +METH-38 PO
[2020-03-18 14:45] VITALS: BP 162/81
--- NOTE | 2020-03-18 16:23 | ED.ADGEN ---
Past Medical History Past Medical History: Depression, Diabetes-Type II, High Cholesterol, Hyp ertension Additional Past Medical Histor: Vertigo Past Surgical History: Cholecystectomy, Tonsillectomy, Tubal ligation Additional Past Surgical Histo: lap band Smoking Status: Never Smoker Alcohol Use: None Drug Use: None General Adult EDM: Chief Complaint: HEADACHE HPI: HPI: Patient is a 54 year old [f__sex] who presents with [] Review of Systems: Review of Systems: Constitutional: Denies fever or chills. [] Eyes: Denies change in visual acuity. [] HENT: Denies nasal congestion or sore throat. [] Respiratory: Denies cough or shortness of breath. [] Cardiovascular: Denies chest pain or edema. [] GI: Denies abdominal pain, nausea, vomiting, bloody stools or diarrhea. [] : Denies dysuria. [] Musculoskeletal: Denies back pain or joint pain. [] Integument: Denies rash. [] Neurologic: Denies headache, focal weakness or sensory changes. [] Endocrine: Denies polyuria or polydipsia. [] Lymphatic: Denies swollen glands. [] Psychiatric: Denies depression or anxiety. [] Allergies: Allergies: Allergies Coded Allergies Type Severity Reaction Last Updated Verified Sulfa (Sulfonamide Antibiotics) Allergy Intermediate Hives 03/10/20 Yes Physical Exam: PE: Constitutional: Well developed, well nourished, no acute distress, non-toxic appearance. [] HENT: Normocephalic, atraumatic, bilateral external ears normal, oropharynx moist, no oral exudates, nose normal. [] Eyes: PERRLA, EOMI, conjunctiva normal, no discharge. [] Neck: Normal range of motion, no tenderness, supple, no stridor. [] Cardiovascular:Heart rate regular rhythm, no murmur [] Lungs & Thorax: Bilateral breath sounds clear to auscultation [] Abdomen: Bowel sounds normal, soft, no tenderness, no masses, no pulsatile masses. [] Skin: Warm, dry, no erythema, no rash. [] Back: No tenderness, no CVA tenderness. [] Extremities: No tenderness, no cyanosis, no clubbing, ROM intact, no edema. [] Neurologic: Alert and oriented X 3, normal motor function, normal sensory function, no focal deficits noted. [] Psychologic: Affect normal, judgement normal, mood normal. [] Current Patient Data: Vital Signs: Vital Signs Date Time Temp Pulse Resp B/P (MAP) Pulse Ox O2 Delivery O2 Flow Rate FiO2 03/18/20 14:45 98.5 102 16 162/81 (108) 98 Room Air 98.5 EKG: EKG: [] Heart Score: Risk Factors: Risk Factors: DM, Current or recent (<one month) smoker, HTN, HLP, family history of CAD, obesity. Risk Scores: Score 0 - 3: 2.5% MACE over next 6 weeks - Discharge Home Score 4 - 6: 20.3% MACE over next 6 weeks - Admit for Clinical Observation Score 7 - 10: 72.7% MACE over next 6 weeks - Early Invasive Strategies Radiology/Procedures: Radiology/Procedures: [] Course & Med Decision Making: Course & Med Decision Making Pertinent Labs and Imaging studies reviewed. (See chart for details) [] Dragon Disclaimer: Dragon Disclaimer: This electronic medical record was generated, in whole or in part, using a voice recognition dictation system. Departure Departure Impression: Primary Impression: Person under investigation for COVID-19 Disposition: 01 DC HOME SELF CARE/HOMELESS Condition: STABLE Referrals: WALESKA BROWNE MD (PCP) Patient Instructions: General Headache Without Cause, [id number] Additional Instructions: You have been tested for or diagnosed with COVID-19. It is an infection caused by a new type of coronavirus. COVID-19 will cause cold-like or mild flu symptoms in most. It can cause more severe symptoms like problems breathing in some. There is no treatment for COVID-19. The body will clear the infection over time. Self-care will help to ease discomfort. Steps to Take: Self-Care Rest as needed. Healthy habits may help you feel better. Steps include: Choose healthy foods including fruits and vegetables. Drink water throughout the day. Get plenty of sleep each night. If you smoke, try to quit. It may ease breathing. Avoid alcohol. Keep Others Healthy The virus can spread to others. Droplets are released every time you sneeze or cough. The droplets can get into the mouth, nose, or eyes of people near you and lead to infection. To lower the chances of spreading COVID-19 to others: Stay at home until your doctor has said it is safe to leave. If you tested positive this will mean staying isolated until both of the following are true: At least 7 days have passed since the start of illness. You are free of fever for at least 72 hours without the use of medicine. During this time: - Avoid public areas, events, or transportation. Do not return to work or school until your doctor has said it is safe to do so. - Call ahead if you need to go to a medical center. Let them know you may have COVID-19. It will help them guide you where to go. They may also ask you to wear a facemask when you come to the office. - If you call for emergency medical services, let them know you may have COVID- 19. While at home: - Try to avoid close contact with others. Stay about 6 feet away. - If possible, spend most of your time in a separate room from others. - Use a face mask if you will be in close contact with others such as sharing a room or vehicle. - Have someone wipe down common surfaces in the home. Use household industrial maintenance instructor every day on areas like doorknobs, counters, or sinks. - Cough or sneeze into a tissue. Throw the tissue away right after use. If a tissue is not available, cough or sneeze into your elbow. - Wash your hands often. Wash them after sneezing or coughing. Use soap and water and wash for at least 20 seconds. Alcohol based hand sanitation truck cleaner can be used if soap and water is not available. - Do not prepare food for others. Avoid sharing personal items like forks, spoons, or toothbrushes. - Avoid close contact with pets while you are sick. There is no evidence of the virus passing to pets. This is a safety step until more is known about this virus. Isolation can be frustrating. Social interaction can help. Keep in touch with friends and family through phone and tech options. You can still interact with others in your home, just keep a safe distance of about 6 feet. Follow-up: Your doctors office will check in with you to see if there are any changes in your health. You may be asked to keep track of symptoms to share with them. They will also let you know when you are clear to be in public again. Problems to Look Out For: Contact your doctor if your recovery is not going as you expect. Get emergency care if you have problems such as: - Trouble breathing - Nonstop chest pain or pressure - Changes in awareness, confusion, or problems waking - Lips or face have bluish color - Worsening of symptoms If you think you have an emergency, call for emergency medical services right away. [facility] from [facility] APRN Mar 18, 2020 16:23
--- NOTE | 2020-03-21 12:40 | NUR ---
IP: Informed pt of positive COVID test and need to quarantine for 10-14 days pending symptoms. Pt verbalized understanding.
== END 2020-03-18 16:40 | disposition home or self-care (01) ==
LOC: ER 14:14
DX: U07.1 COVID-19 (principal); E11.9 Type 2 diabetes mellitus without complications; I10 Essential (primary) hypertension; E78.00 Pure hypercholesterolemia, unspecified; Z88.2 Allergy status to sulfonamides
CPT/HCPCS: 99283; C9803; U0003

== ENCOUNTER 2020-04-02 06:58 | Emergency (ER) | payer OTHER ==
[~2020-04-02] VITALS: Ht 152.4 cm; Wt 120.0 kg
[2020-04-02 07:04] VITALS: BP 143/93
[2020-04-02] MEDS ORDERED: PSEU120T9 PO (07:29)
--- NOTE | 2020-04-02 07:29 | PHYS DOC ---
Past Medical History Past Medical History: Depression, Diabetes-Type II, High Cholesterol, Hyp ertension Additional Past Medical Histor: Vertigo Past Surgical History: Cholecystectomy, Tonsillectomy, Tubal ligation Additional Past Surgical Histo: lap band Smoking Status: Never Smoker Alcohol Use: None Drug Use: None General Adult EDM: Chief Complaint: SORE THROAT HPI: HPI: Patient is a 54 year old female who presents with a chief complaint of sore throat. Patient had COVID-19 with symptoms beginning about 20 days ago in which she recovered. When she got back out of isolation she began having a sore throat that is moderate in severity as well as nasal congestion. Symptoms are worse with exertion. Symptoms worse with swallowing. Patient does not have any current fever but has had a mild cough. Patient denies any vomiting diarrhea or difficulty breathing. Review of Systems: Review of Systems: Constitutional: Denies fever or chills. [] Eyes: Denies change in visual acuity. [] HENT: Complains of nasal congestion and sore throat Respiratory: Planes of mild cough but no shortness of breath. [] Cardiovascular: Denies chest pain or edema. [] GI: Denies abdominal pain, nausea, vomiting, bloody stools or diarrhea. [] : Denies dysuria. [] Musculoskeletal: Denies back pain or joint pain. [] Integument: Denies rash. [] Neurologic: Denies headache, focal weakness or sensory changes. [] Endocrine: Denies polyuria or polydipsia. [] Lymphatic: Denies swollen glands. [] Psychiatric: Denies depression or anxiety. [] Heart Score: Risk Factors: Risk Factors: DM, Current or recent (<one month) smoker, HTN, HLP, family history of CAD, obesity. Risk Scores: Score 0 - 3: 2.5% MACE over next 6 weeks - Discharge Home Score 4 - 6: 20.3% MACE over next 6 weeks - Admit for Clinical Observation Score 7 - 10: 72.7% MACE over next 6 weeks - Early Invasive Strategies Allergies: Allergies: Allergies Coded Allergies Type Severity Reaction Last Updated Verified Sulfa (Sulfonamide Antibiotics) Allergy Intermediate Hives 03/10/20 Yes Physical Exam: PE: Constitutional: Well developed, well nourished, no acute distress, non-toxic appearance. [] HENT: Normocephalic, atraumatic, bilateral external ears normal, mild pharyngeal erythema without tonsillar exudate or abscess. Nose normal. [] Eyes: PERRLA, EOMI, conjunctiva normal, no discharge. [] Neck: Normal range of motion, no tenderness, supple, no stridor. []/Shotty cervical lymphadenopathy Cardiovascular:Heart rate regular rhythm, peripheral pulses are intact, cap refill is brisk Lungs & Thorax: Bilateral breath sounds clear, no respiratory distress Abdomen: soft, no tenderness, no masses, no pulsatile masses. [] Skin: Warm, dry, no erythema, no rash. [] Back: No tenderness, no CVA tenderness. [] Extremities: No tenderness, no cyanosis, no clubbing, ROM intact, no edema. [] Neurologic: Alert and oriented X 3, normal motor function, normal sensory function, no focal deficits noted. [] Psychologic: Affect normal, judgement normal, mood normal. [] Current Patient Data: Labs: Strep negative Vital Signs: Vital Signs Date Time Temp Pulse Resp B/P (MAP) Pulse Ox O2 Delivery O2 Flow Rate FiO2 04/02/20 07:04 97.9 104 20 143/93 (110) 99 Room Air 97.9 EKG: EKG: [] Radiology/Procedures: Radiology/Procedures: [] Course & Med Decision Making: Course & Med Decision Making Pertinent Labs and Imaging studies reviewed. (See chart for details) [] 54-year-old female who recently got over COVID-19 presents with a sore throat. Patient has no peritonsillar abscess or exudate. Strep test is negative. Patient was placed on decongestants. Return precautions given. Patient is nontoxic has no increased work of breathing. Dragon Disclaimer: Dragon Disclaimer: This electronic medical record was generated, in whole or in part, using a voice recognition dictation system. Departure Departure Impression: Primary Impression: Pharyngitis Disposition: 01 DC HOME SELF CARE/HOMELESS Condition: STABLE Referrals: WALESKA BROWNE MD (PCP) 2-3 days Patient Instructions: Viral Pharyngitis Additional Instructions: EMERGENCY DEPARTMENT GENERAL DISCHARGE INSTRUCTIONS THANK YOU for coming to [facility] Emergency Department (ED) today and trusting us with your care. We trust that you had a positive experience in our Emergency Department. If you wish to speak to the department Management you can contact the sack department supervisor at . YOUR FOLLOW UP INSTRUCTIONS ARE FOLLOWS: Do you have a private doctor? If you do not have a private doctor, please ask for a resource list of physicians or clinics that may be able to assist you with follow up care. The Emergency Physician has interpreted your x-rays. The X-ray specialist will also review them. If there is a change in the findings you will be notified in 48 hours when at all possible. A lab test or lab culture may have been done, your results will be reviewed and you will be notified if you need a change in treatment. ADDITIONAL INSTRUCTIONS AND INFORMATION Your care today has been supervised by a physician who is specially trained in emergency care. Many problems require more than one evaluation for a complete diagnosis and treatment. We recommend that you schedule your follow up appointment as recommended to ensure complete treatment of your illness or injury. If you are unable to obtain follow up care and continue to have a problem, or if your condition worsens we recommend that you return to the ED. We are not able to safely determine your condition over the phone nor are we able to give sound medical advice over the phone. For these safety reasons, if you call for medical advice we will ask you to come to the ED for further evaluation If you have any questions regarding these discharge instructions please call the ED at . SAFETY INFORMATION In the interest of safety, wellness, and injury prevention; we encourage you to wear your seatbelt, if you smoke; quit smoking, and we encourage your family to use protective helmet for bicycling and other sporting events that present an increased risk for head injury. IF YOUR SYMPTOMS WORSEN OR NEW SYMPTOMS DEVELOP, OR YOU HAVE CONCERNS ABOUT YOUR CONDITION; OR IF YOUR CONDITION WORSENS WHILE YOU ARE WAITING FOR YOUR FOLLOW UP APPOINTMENT; EITHER CONTACT YOUR PRIMARY CARE DOCTOR, THE PHYSICIAN WHOSE NAME AND NUMBER YOU WERE GIVEN, OR RETURN TO THE ED IMMEDIATELY. Scripts Pseudoephedrine Hcl (SUDAFED 12-HOUR) 120 Mg Tablet.er 1 TAB PO BID, #20 TAB Prov: ZOLTAN GRIDER MD 04/02/20 ZOLTAN GRIDER MD Apr 02, 2020 07:29
== END 2020-04-02 07:36 | disposition home or self-care (01) ==
LOC: ER 06:58
DX: J02.9 Acute pharyngitis, unspecified (principal); R09.81 Nasal congestion; R05 Cough; F32.9 Major depressive disorder, single episode, unspecified; E11.9 Type 2 diabetes mellitus without complications; E78.00 Pure hypercholesterolemia, unspecified; I10 Essential (primary) hypertension; Z90.49 Acquired absence of other specified parts of digestive tract; Z90.89 Acquired absence of other organs; Z98.890 Other specified postprocedural states; Z88.2 Allergy status to sulfonamides
CPT/HCPCS: 87070; 87880; 99283

== ENCOUNTER → 2020-06-08 | Outpatient (CLI) | payer OTHER ==
[~2020-06-08] MED LIST changes: +PSEU120T9 PO
== END ==
LOC: LAB 11:39
PROVIDERS: ATTEND Family Medicine
DX: R51.9 Headache, unspecified (principal)
CPT/HCPCS: 36415; 86140

== ENCOUNTER 2020-09-10 10:34 | Emergency (ER) | payer OTHER ==
[~2020-09-10] VITALS: Ht 152.4 cm; Wt 118.0 kg
[~2020-09-10 10:34] MED LIST changes: -LISI-334 PO; +LISI20TA18 PO
[2020-09-10 11:05] VITALS: BP 133/77
[2020-09-10] MEDS ORDERED: TETRACAINE 0.5% OPHTH SOLUTION 4ML BOTTLE. OS ONE (11:15)
[2020-09-10] MEDS ORDERED: FLUORESCEIN OPHTH TEST STRIP. OS ONE (11:15)
--- NOTE | 2020-09-10 11:33 | PHYS DOC ---
Past Medical History Past Medical History: Depression, Diabetes-Type II, High Cholesterol, Hyp ertension Additional Past Medical Histor: Vertigo Past Surgical History: Cholecystectomy, Tonsillectomy, Tubal ligation Additional Past Surgical Histo: lap band Smoking Status: Never Smoker Alcohol Use: None Drug Use: None General Adult EDM: Chief Complaint: EYE PROBLEMS HPI: HPI: Patient is a 54 year old female who presents with states this morning she began having a feeling that something was in her left eye and there is irritation with watering of the eye. She denies any vision changes. She denies any discharge or itching. Patient is rating her pain a 5 out of 10. Patient has a history of depression, diabetes, high cholesterol, hypertension, cholecystectomy, tubal lig ation, tonsillectomy, LAP-BAND. Review of Systems: Review of Systems: Constitutional: Denies fever or chills. [] Eyes: Denies change in visual acuity. + Eye irritation, + eye pain [] HENT: Denies nasal congestion or sore throat. [] Respiratory: Denies cough or shortness of breath. [] Cardiovascular: Denies chest pain or edema. [] GI: Denies abdominal pain, nausea, vomiting, bloody stools or diarrhea. [] : Denies dysuria. [] Musculoskeletal: Denies back pain or joint pain. [] Integument: Denies rash. [] Neurologic: Denies headache, focal weakness or sensory changes. [] Endocrine: Denies polyuria or polydipsia. [] Lymphatic: Denies swollen glands. [] Psychiatric: Denies depression or anxiety. [] Heart Score: C/O Chest Pain: No Risk Factors: Risk Factors: DM, Current or recent (<one month) smoker, HTN, HLP, family history of CAD, obesity. Risk Scores: Score 0 - 3: 2.5% MACE over next 6 weeks - Discharge Home Score 4 - 6: 20.3% MACE over next 6 weeks - Admit for Clinical Observation Score 7 - 10: 72.7% MACE over next 6 weeks - Early Invasive Strategies Current Medications: Current Medications Medications (Trade) Dose Ordered Sig/Florentin Start Time Stop Time Status Last Admin Dose Admin Fluorescein Sodium (Ful-Nova) 1 strip 1X ONCE 09/10/20 11:15 09/10/20 11:16 DC Tetracaine HCl (Tetracaine) 1 drop 1X ONCE 09/10/20 11:15 09/10/20 11:16 DC Allergies: Allergies: Allergies Coded Allergies Type Severity Reaction Last Updated Verified Sulfa (Sulfonamide Antibiotics) Allergy Intermediate Hives 03/10/20 Yes Physical Exam: PE: Constitutional: Well developed, well nourished, no acute distress, non-toxic appearance. [] HENT: Normocephalic, atraumatic, bilateral external ears normal, oropharynx moist, no oral exudates, nose normal. [] Eyes: PERRLA, EOMI, conjunctiva redness, no discharge, watering. [] Neck: Normal range of motion, no tenderness, supple, no stridor. [] Cardiovascular:Heart rate regular rhythm, no murmur [] Lungs & Thorax: Bilateral breath sounds clear to auscultation [] Abdomen: Bowel sounds normal, soft, no tenderness, no masses, no pulsatile mas ses. [] Skin: Warm, dry, no erythema, no rash. [] Back: No tenderness, no CVA tenderness. [] Extremities: No tenderness, no cyanosis, no clubbing, ROM intact, no edema. [] Neurologic: Alert and oriented X 3, normal motor function, normal sensory function, no focal deficits noted. [] Psychologic: Affect normal, judgement normal, mood normal. [] Current Patient Data: Vital Signs: Vital Signs Date Time Temp Pulse Resp B/P (MAP) Pulse Ox O2 Delivery O2 Flow Rate FiO2 09/10/20 11:05 98.7 108 16 133/77 (95) 97 Room Air 98.7 EKG: EKG: [] Radiology/Procedures: Radiology/Procedures: [] Course & Med Decision Making: Course & Med Decision Making Pertinent Labs and Imaging studies reviewed. (See chart for details) See HPI. Alert and oriented x4. Ambulatory with a steady gait. Speaks in full clear sentences. PERRLA. Conjunctiva is reddened. No extraocular eye motion tenderness. Eye Exam Visual accuity: N/A Eye exam: PERRL, Extraocular muscles intact. No signs of ruptured globe. Sclera reddened. Red reflex present. Foreign body: No foreign bodies seen with examination or with lid flip exam. Johnny-pen: N/A Fluorescein test: corneal abrasion present at bottom inner and outer eye. Anesthetic: Tetracaine [] Dragon Disclaimer: Ricardo Disclaimer: This electronic medical record was generated, in whole or in part, using a voice recognition dictation system. Departure Departure Impression: Primary Impression: Corneal abrasion, left Qualified Codes: S05.02XA - Injury of conjunctiva and corneal abrasion witho ut foreign body, left eye, initial encounter Disposition: HOME / SELF CARE / HOMELESS Condition: STABLE Referrals: WALESKA BROWNE MD (PCP) Patient Instructions: Eye - Corneal Abrasion Additional Instructions: Follow-up with primary care provider or eye doctor. Use ointment as prescribed. Scripts Erythromycin Base (Erythromycin) 1 Gm Oint...g. 1 GM OP QID, #1 MISC Prov: JANA HADLEY APRN 09/10/20 JANA HADLEY APRN September 10, 2020 11:33
[2020-09-10] MEDS ORDERED: ERYT1OIN6 OP (11:47)
== END 2020-09-10 12:00 | disposition home or self-care (01) ==
LOC: ER 10:34
DX: S05.02XA Injury of conjunctiva and corneal abrasion without foreign body, left eye, initial encounter (principal); E11.9 Type 2 diabetes mellitus without complications; I10 Essential (primary) hypertension; E78.00 Pure hypercholesterolemia, unspecified; Z90.49 Acquired absence of other specified parts of digestive tract; Z98.51 Tubal ligation status; Z88.2 Allergy status to sulfonamides; X58.XXXA Exposure to other specified factors, initial encounter; Y93.89 Activity, other specified; Y92.89 Other specified places as the place of occurrence of the external cause; Y99.8 Other external cause status
CPT/HCPCS: 99283

== ENCOUNTER 2021-02-06 11:58 | Emergency (ER) | payer SELFPAY ==
[~2021-02-06] VITALS: Ht 152.4 cm; Wt 120.9 kg
[~2021-02-06 11:58] MED LIST changes: +DOXY-181 PO; -DOXY100C14 PO; +ERYT1OIN6 OP
[2021-02-06 15:00] VITALS: BP 173/107
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
== END 2021-02-06 15:41 | disposition home or self-care (01) ==
LOC: ER 12:16
DX: M25.511 Pain in right shoulder (principal); E11.9 Type 2 diabetes mellitus without complications; E78.00 Pure hypercholesterolemia, unspecified; I10 Essential (primary) hypertension; Z88.2 Allergy status to sulfonamides
CPT/HCPCS: 73030; 73060; 99284

== ENCOUNTER 2021-03-18 01:25 | Emergency (ER) | payer OTHER ==
[~2021-03-18] VITALS: Ht 152.4 cm; Wt 122.2 kg
[2021-03-18] MEDS ORDERED: IBUPROFEN 200 MG TABLET. PO ONE (01:30)
[2021-03-18 01:45] VITALS: BP 150/77
--- NOTE | 2021-03-18 01:45 | PHYS DOC ---
Past Medical History Past Medical History: Depression, Diabetes-Type II, High Cholesterol, Hyp ertension Additional Past Medical Histor: Vertigo Past Surgical History: Cholecystectomy, Hysterectomy, Tonsillectomy, Tubal ligation Additional Past Surgical Histo: lap band Smoking Status: Never Smoker Alcohol Use: None Drug Use: None General Adult EDM: Chief Complaint: KNEE INJURY HPI: HPI: Patient is a 55 year old [f__sex] who presents with [] Review of Systems: Review of Systems: Constitutional: Denies fever or chills. [] Eyes: Denies change in visual acuity. [] HENT: Denies nasal congestion or sore throat. [] Respiratory: Denies cough or shortness of breath. [] Cardiovascular: Denies chest pain or edema. [] GI: Denies abdominal pain, nausea, vomiting, bloody stools or diarrhea. [] : Denies dysuria. [] Musculoskeletal: Denies back pain or joint pain. [] Integument: Denies rash. [] Neurologic: Denies headache, focal weakness or sensory changes. [] Endocrine: Denies polyuria or polydipsia. [] Lymphatic: Denies swollen glands. [] Psychiatric: Denies depression or anxiety. [] Heart Score: Risk Factors: Risk Factors: DM, Current or recent (<one month) smoker, HTN, HLP, family history of CAD, obesity. Risk Scores: Score 0 - 3: 2.5% MACE over next 6 weeks - Discharge Home Score 4 - 6: 20.3% MACE over next 6 weeks - Admit for Clinical Observation Score 7 - 10: 72.7% MACE over next 6 weeks - Early Invasive Strategies Current Medications: Current Medications Medications (Trade) Dose Ordered Sig/Florentin Start Time Stop Time Status Last Admin Dose Admin Ibuprofen (Motrin) 600 mg 1X ONCE 03/18/21 02:00 03/18/21 01:31 UNV 03/18/21 01:19 600 MG Allergies: Allergies: Allergies Coded Allergies Type Severity Reaction Last Updated Verified Sulfa (Sulfonamide Antibiotics) Allergy Intermediate Hives 02/06/21 Yes Physical Exam: PE: Constitutional: Well developed, well nourished, no acute distress, non-toxic appearance. [] HENT: Normocephalic, atraumatic, bilateral external ears normal, oropharynx moist, no oral exudates, nose normal. [] Eyes: PERRLA, EOMI, conjunctiva normal, no discharge. [] Neck: Normal range of motion, no tenderness, supple, no stridor. [] Cardiovascular:Heart rate regular rhythm, no murmur [] Lungs & Thorax: Bilateral breath sounds clear to auscultation [] Abdomen: Bowel sounds normal, soft, no tenderness, no masses, no pulsatile masses. [] Skin: Warm, dry, no erythema, no rash. [] Back: No tenderness, no CVA tenderness. [] Extremities: No tenderness, no cyanosis, no clubbing, ROM intact, no edema. [] Neurologic: Alert and oriented X 3, normal motor function, normal sensory function, no focal deficits noted. [] Psychologic: Affect normal, judgement normal, mood normal. [] Current Patient Data: Vital Signs: Vital Signs Date Time Temp Pulse Resp B/P (MAP) Pulse Ox O2 Delivery O2 Flow Rate FiO2 03/18/21 01:45 97.9 111 18 150/77 (101) 97 Room Air 97.9 EKG: EKG: [] Radiology/Procedures: Radiology/Procedures: [] Course & Med Decision Making: Course & Med Decision Making Pertinent Labs and Imaging studies reviewed. (See chart for details) [] Dragon Disclaimer: DragKG Funding Disclaimer: This electronic medical record was generated, in whole or in part, using a voice recognition dictation system. Departure Departure Impression: Primary Impression: Distal radius fracture, left Qualified Codes: S52.502A - Unspecified fracture of the lower end of left radius, initial encounter for closed fracture Additional Impression: Knee contusion Qualified Codes: S80.01XA - Contusion of right knee, initial encounter Disposition: HOME / SELF CARE / HOMELESS Condition: STABLE Referrals: WALESKA BROWNE MD (PCP) JAMESON CHOPRA DO Patient Instructions: Knee Pain, [id number], Knee Wraps (Elastic Bandage) and RICE, Radius Fracture with Rehab-SportsMed Additional Instructions: Ice area of discomfort 20 minutes on then leave off next 20 minutes. Repeat several times daily for the next few days. Take [id number] ibuprofen and/or Tylenol for pain or discomfort NIKOS BUCHANAN DO Mar 18, 2021 01:45
--- NOTE | 2021-03-18 02:24 | RAD ---
KNEE 3 VIEWS LEFT Clinical Indication: Reason: pain s/p fall 3 days ago Comparison: None. Findings: There is no acute fracture or dislocation. There are tiny tricompartmental marginal osteophytes. Ther e is mild medial compartment narrowing. The patella is in anatomic position. There is no soft tissue abnormality. Cannot exclude small joint effusion. A fat fluid level is not seen. IMPRESSION: No acute fracture. Electronically signed by: Dorian Beth MD (03/18/2021 2:21 AM) [facility]
--- NOTE | 2021-03-18 02:29 | RAD ---
LEFT WRIST, 3 VIEWS Indication: Reason: pain s/p fall 3 days ago Findings: There is no acute fracture or dislocation. No bony erosion is identified. The bony articulations are normal. The mineralization is normal. There is no soft tissue swelling or radiopaque foreign body. IMPRESSION: No acute fracture or dislocation. Electronically signed by: Dorian Beth MD (03/18/2021 2:26 AM) [facility]
== END 2021-03-18 01:50 | disposition home or self-care (01) ==
LOC: ER 01:25
DX: S52.502A Unspecified fracture of the lower end of left radius, initial encounter for closed fracture (principal); S80.01XA Contusion of right knee, initial encounter; E11.9 Type 2 diabetes mellitus without complications; E78.00 Pure hypercholesterolemia, unspecified; I10 Essential (primary) hypertension; Z88.2 Allergy status to sulfonamides; W18.39XA Other fall on same level, initial encounter; Y93.89 Activity, other specified; Y92.89 Other specified places as the place of occurrence of the external cause; Y99.8 Other external cause status
CPT/HCPCS: 29125; 73120; 73562; 99284; A6450

== ENCOUNTER 2021-07-06 07:14 | Emergency (ER) | payer SELFPAY ==
[~2021-07-06] VITALS: Ht 152.4 cm; Wt 118.1 kg
[2021-07-06] MEDS ORDERED: DEXAMETHASONE 4 MG TABLET ONE (08:07)
[2021-07-06] MEDS ORDERED: DEXAMETHASONE 4 MG TABLET PO ONE (08:15)
--- NOTE | 2021-07-06 08:39 | PHYS DOC ---
Past Medical History Past Medical History: Depression, Diabetes-Type II, High Cholesterol, Hyp ertension Additional Past Medical Histor: Vertigo Past Surgical History: Cholecystectomy, Hysterectomy, Tonsillectomy, Tubal ligation Additional Past Surgical Histo: lap band Smoking Status: Never Smoker Alcohol Use: None Drug Use: None General Adult EDM: Chief Complaint: SORE THROAT HPI: HPI: Patient is a 55 year old F who presents with sore throat. Patient reports sore throat began the day before yesterday and has been progressively worsening. This morning she went to work and was feeling poorly so decided to come into the ED. Patient also reports "everything above the neck hurts". Patient reports headache that is band-like, across the forehead. Patient also reports bilateral ear pain. Patient denies fever, chills, cough, chest pain, and nausea vomiting. Patient also reports 4 of her grandchildren have had tested positive for strep throat in the last 2 weeks. Patient also has history of chronic sinusitis with stents in place. Review of Systems: Review of Systems: Constitutional: Denies fever or chills. Eyes: Denies redness or eye pain. HENT: Reports nasal congestion, sore throat, headache and sinus pain. Respiratory: Denies cough or shortness of breath. Cardiovascular: Denies chest pain or palpitations. GI: Denies abdominal pain, nausea, or vomiting. : Denies dysuria or hematuria. Musculoskeletal: Denies back pain or joint pain. Integument: Denies rash or skin lesions. Neurologic: Denies headache, focal weakness or sensory changes. Complete systems were reviewed and found to be within normal limits, except as documented in this note. Heart Score: C/O Chest Pain: No Current Medications: Current Medications Medications (Trade) Dose Ordered Sig/Florentin Start Time Stop Time Status Last Admin Dose Admin Dexamethasone (Decadron) 4 mg STK-MED ONCE 07/06/21 08:07 07/06/21 08:07 DC Allergies: Allergies: Allergies Coded Allergies Type Severity Reaction Last Updated Verified Sulfa (Sulfonamide Antibiotics) Allergy Intermediate Hives 02/06/21 Yes Physical Exam: PE: Constitutional: Well developed, well nourished, no acute distress, non-toxic appearance HENT: Normocephalic, atraumatic, oropharynx erythematous and edematous, no palpable anterior cervical lymph nodes, maxillary and frontal sinuses tender to palpation. Eyes: PERRL, EOMI, conjunctiva normal, no discharge. Neck: Normal range of motion, no tenderness, supple. Lungs & Thorax: No respiratory distress, equal chest rise and fall. Abdomen: Soft, no tenderness. Skin: Warm, dry, no erythema, no rash. Back: No tenderness, no CVA tenderness. Extremities: No tenderness, ROM intact, no edema Neurologic: Alert and oriented X 3, normal motor function, normal sensory function, no focal deficits noted Psychologic: Affect normal, judgment normal Current Patient Data: Labs: Laboratory Tests Test 07/06/21 07:40 Group A Streptococcus Rapid Negative (NEGATIVE) Vital Signs: Vital Signs Date Time Temp Pulse Resp B/P (MAP) Pulse Ox O2 Delivery O2 Flow Rate FiO2 07/06/21 07:15 98.0 100 22 152/71 (98) 100 Room Air 98.0 Course & Med Decision Making: Course & Med Decision Making Pertinent Labs and Imaging studies reviewed. (See chart for details) Patient with history of chronic sinusitis presents with sore throat, bilateral ear pain, and headache. On presentation to ED, vital signs stable. Rapid strep test, Rapid flu and Covid test negative. In ED, patient was given Decadron 10 mg. Patient stable for discharge with outpatient follow-up with PCP. Discussed findings and plan with patient, who acknowledges understanding and agreement. Ricardo Disclaimer: Ricardo Disclaimer: This electronic medical record was generated, in whole or in part, using a voice recognition dictation system. Departure Departure Impression: Primary Impression: Pharyngitis Qualified Codes: J02.9 - Acute pharyngitis, unspecified Disposition: HOME / SELF CARE / HOMELESS Condition: STABLE Referrals: WALESKA BROWNE MD (PCP) Patient Instructions: Viral and Bacterial Pharyngitis, [id number] Scripts Amoxicillin/Potassium Clav (AMOX TR-K CLV 875-125 MG TAB) 1 Each Tablet 1 TAB PO BID for 7 Days, #14 TAB Prov: NIKOS BUCHANAN DO 07/06/21 NIKOS BUCHANAN DO Jul 06, 2021 08:39
[2021-07-06 08:56] LABS: INFLUENZA A PATIENT NEGATIVE (NEGATIVE); INFLUENZA B PATIENT NEGATIVE (NEGATIVE)
[2021-07-06] MEDS ORDERED: AMOX1TAB11 PO (09:05)
[2021-07-06 09:14] VITALS: BP 146/94
== END 2021-07-06 09:15 | disposition home or self-care (01) ==
LOC: ER 07:14
DX: J02.9 Acute pharyngitis, unspecified (principal); Z20.822 Contact with and (suspected) exposure to COVID-19; E11.9 Type 2 diabetes mellitus without complications; E78.00 Pure hypercholesterolemia, unspecified; I10 Essential (primary) hypertension; Z88.2 Allergy status to sulfonamides
CPT/HCPCS: 87070; 87428; 87880; 99283